=== PATIENT | male | born 1970 | race Caucasian/White ===

== ENCOUNTER 2020-08-19 14:42 | Inpatient (IN) | payer OTHER, SELFPAY ==
[2020-08-19] VITALS (20 sets, daily range): BP systolic 115–137; BP diastolic 71–94; PULSE 96–114; RESP 13–35; TEMP 35.7–37.1; O2SAT 91–99
--- NOTE | ~2020-08-19 | CT_ITS ---
EXAMINATION: CTA chest PE protocol DATE: 08/19/2020 16:12 INDICATION: Chest pain and shortness of breath. Covid-positive. Hypertension. TECHNIQUE: Computed tomography angiography (CTA) of the chest was performed with 100 mL Omnipaque-350 intravenous contrast timed to evaluate the pulmonary arteries. Coronal maximum intensity projection 3D-reconstructions were created by the technologist. Automated exposure control and iterative reconst ruction technique were employed. Exam dose: 507.28 mGy-cm total exam DLP. COMPARISON: 10/22/2018 2 view chest FINDINGS: There is diagnostic contrast enhancement of the pulmonary arteries and no evidence of pulmo nary embolism. No thoracic aortic aneurysm or dissection. Normal heart size. Coronary artery calcification. No pericardial or pleural effusion. Mild bilateral hilar and mediastinal lymph node prominence, likely reactive. There are scattered patchy infiltrates throughout all lobes bilaterally. Small sliding hiatal hernia. Solitary small sclerotic lesion of the left lateral seventh rib. IMPRESSION: Patchy bilateral pneumonia scattered throughout all lobes, both lungs, with mild hilar a nd mediastinal likely reactive lymphadenopathy No evidence of pulmonary embolism Small sliding hiatal hernia Solitary sclerotic lesion of the left seventh rib laterally is of uncertain if any significance. Reviewed, dictated and finalized at [facility]. Reviewed, dictated and finalized at [facility]. IMPRESSION: Patchy bilateral pneumonia scattered throughout all lobes, both markel ngs, with mild hilar and mediastinal likely reactive lymphadenopathy No evidence of pulmonary embolism Small sliding hiatal hernia Solitary sclerotic lesion of the left seventh rib laterally is of uncertain if any significance.
--- NOTE | 2020-08-19 14:51 | ECG_ITS ---
Measurements Intervals [place] Rate: 102 P: 9 CT: 163 QRS: 0 QRSD: 69 T: 20 QT: 303 QTc: 395 Interpretive Statements SINUS TACHYCARDIA BORDERLINE ECG Electronically Signed On 08-19-2020 15:23:23 CDT by Sander Marquez D.O.
--- NOTE | 2020-08-19 15:00 | PC.NURSE ---
placed on o2 at 2 lpm nc for room air sat 92-33%. pt was 89% room air at home per ems crew
[2020-08-19] MEDS: DEXAMETHASONE SOD PHOS INJ 4 MG/ML VIAL 6 MG IV PUSH (15:27)
[2020-08-19 15:37] LABS: Basophils Percent Auto 0.2 % (0.2-1.2); Hematocrit 43.2 % (42.0-52.0); Hemoglobin 14.5 g/dL (14.0-18.0); Immature Granulocyte Absolute 0.06 K/mm3 (0.00-0.031); Immature Granulocyte Percent A 1.1 % (0-0.5); Lymphocytes Absolute Auto 1.02 K/mm3 (0.9-3.2); Lymphocytes Percent Auto 18.7 % (18.3-44.2); Mean Corpuscular HGB Conc 33.6 g/dl (32-36); Mean Corpuscular Hemoglobin 30.5 pg (26-34); Mean Corpuscular Volume 90.9 fl (80-100); Mean Platelet Volume 11.2 fl (7.4-10.4); Monocytes Absolute Auto 0.2 K/mm3 (0.1-0.6); Neutrophils Absolute Auto 4.1 K/mm3 (1.3-6.7); Platelet Count Result 175 k/mm3 (150-375); Red Blood Count 4.75 M/mm3 (4.6-6.20); Red Cell Distribution Width 13.1 % (11.5-14.5); White Blood Count 5.5 K/mm3 (4.5-10.0)
[2020-08-19 15:46] LABS: Prothrombin Time 13.4 Seconds (11.1-14.7)
[2020-08-19 15:47] LABS: Lactic Acid Reflex 1.1 mmol/L (0.7-2.1); Partial Thromboplastin Time 25.8 SECONDS (22.3-36.8)
--- NOTE | 2020-08-19 15:48 | ED.GENADULT ---
HPI - General Adult General Chief complaint: Chest Pain Stated complaint: COVID +, SOB, Chest tightness Time Seen by Provider: 08/19/20 14:45 History of Present Illness HPI narrative: Patient is a 49-year-old male who presents the ER with chest pain and shortness of breath. Patient reports that 2 weeks ago his was diagnosed with COVID-19. At that time he was tested and negative. However he began to develop symptoms on 08/13 and was retested. He was then found to be positive. Today he had virtual follow-up with his physician and reported increased pain and shortness of breath. Began coughing and having pain with inspiration in the last 24 hours. EMS arrived and patient was found to be hypoxic at 88% on room air. No alleviating factors. Related Data Home Medications Medication Instructions Recorded Confirmed atorvastatin 08/19/20 lisinopril 08/19/20 metformin mg PO 08/19/20 Allergies Allergy/AdvReac Type Severity Reaction Status Date / Time Penicillins Allergy Unknown Verified 03/13/17 16:59 Review of Systems Review of Systems: All systems reviewed & are unremarkable except as noted in HPI and below Constitutional: Constitutional: Reports chills, Reports fatigue and Reports fever(s) ENT: Denies nasal congestion and Denies sore throat Cardiovascular: Cardiovascular: Reports chest pain, Denies rapid heart rate and Denies radiating jaw, neck or arm pain Respiratory: Respiratory: Reports cough, Reports dyspnea and Denies wheezing Gastrointestinal: Gastrointestinal: Denies abdominal pain, Denies nausea and Denies vomiting Neurologic: Denies focal weakness and Denies numbness PMFSH Past Medical History Medical History (Updated 08/19/20 @ 16:44 by Baron Henson MD) Diabetes History of hypertension Hypercholesterolemia Pneumonia Surgical History Surgical History (Updated 08/19/20 @ 15:52 by Baron Henson MD) History of left heart catheterization Social History Social History (Updated 08/19/20 @ 15:52 by Baron Henson MD) Smoking status: Never smoker Exam Narrative: Exam Narrative: GENERAL: Well-appearing, well-nourished, and in no acute distress. HEAD: Normocephalic, atraumatic. EYES: PERRL and EOMI. CHEST: Crackles in bilateral lung lovelace. No respiratory distress. Frequent coughing HEART: Tachycardic and regular. Normal peripheral pulses. ABDOMEN: Soft, nontender, nondistended. EXTREMITIES: Normal range of motion. No edema. SKIN: Warm, dry, no rash. NEURO: Alert and oriented x3. PSYCH: Normal mood and affect. Course Course Emergency Course: Patient informed results. Admit to hospitalist. Vital Signs Vital signs: Vital Signs Temperature 98.7 F 08/19/20 14:50 Pulse Rate 103 H 08/19/20 14:50 Respiratory Rate 25 H 08/19/20 14:50 Blood Pressure 133/90 08/19/20 14:50 Pulse Oximetry 96 08/19/20 14:50 Temperature 98.7 F 08/19/20 14:50 Pulse Rate 108 H 08/19/20 16:30 Respiratory Rate 25 H 08/19/20 16:30 Blood Pressure 137/94 H 08/19/20 15:46 Pulse Oximetry 96 08/19/20 16:30 Medical Decision Making Vital Signs Vital Signs: Vital Signs Temperature 98.7 F 08/19/20 14:50 Pulse Rate 103 H 08/19/20 14:50 Respiratory Rate 25 H 08/19/20 14:50 Blood Pressure 133/90 08/19/20 14:50 Pulse Oximetry 96 08/19/20 14:50 Temperature 98.7 F 08/19/20 14:50 Pulse Rate 108 H 08/19/20 16:30 Respiratory Rate 25 H 08/19/20 16:30 Blood Pressure 137/94 H 08/19/20 15:46 Pulse Oximetry 96 08/19/20 16:30 Lab Data Result diagrams: 08/19/20 15:30 08/19/20 15:30 Labs: Lab Results 08/19/20 08/19/20 08/19/20 Range/Units 15:30 15:30 15:30 WBC 5.5 (4.5-10.0) K/mm3 RBC 4.75 (4.6-6.20) M/mm3 Hgb 14.5 (14.0-18.0) g/dL Hct 43.2 (42.0-52.0) % MCV 90.9 (80-100) fl MCH 30.5 (26-34) pg MCHC 33.6 (32-36) g/dl RDW 13.1 (11.5-14.5) % Plt Count 175
[2020-08-19 15:50] LABS: Alanine Aminotransferase 42 U/L (4-50); Albumin Level 4.4 g/dL (3.5-5.1); Alkaline Phosphatase 45 U/L (38-126); Anion Gap 9 mmol/L (8-16); Aspartate Amino Transferase 47 U/L (17-59); Bilirubin,Total 0.5 mg/dL (0.2-1.3); Blood Urea Nitrogen 15 mg/dL (9-20); Calcium 9.5 mg/dL (8.4-10.2); Carbon Dioxide 28 mmol/L (22-30); Chloride 103 mmol/L (98-107); Estimated CRCL calculation 100 ml/min; Estimated Glomerular Filt Rate > 60; Glucose 155 mg/dL (75-110); Potassium 3.9 mmol/L (3.4-5.0); Sodium 140 mmol/L (137-145)
[2020-08-19 17:10] LABS: CRP 5.9 mg/dL (<1.0)
[2020-08-19] MEDS: MORPHINE SULFATE (*CRX) 4 MG/ML INJ IV PUSH (17:24)
[2020-08-19] MEDS: ONDANSETRON INJ 4 MG/2 ML VIAL IV PUSH (17:24)
--- NOTE | 2020-08-19 19:00 | PC.NURSE ---
This patient, Tim Mishra, was admitted to 3 [facility] Surg Room 319-01. Patient/family oriented to hospital policies and general routines including ID bracelet, bed and alarms, visiting hours, pain management, procedures, bathroom and other care routines, personal items, smoking policy, room service/diet, and visiting hours. Report received from Paige MAZARIEGOS Information on how to activate the Rapid Response Team has been discussed. Patient/Family are encouraged to report perceived risks to care and to ask questions if they do not understand what they are told or what they should do.
[2020-08-19 22:39] LABS: Glucose Point of Care 346 (65-105)
--- NOTE | 2020-08-19 22:50 | PM.IMHP ---
H&P: HPI History of Present Illness Date/Time: 08/19/20 22:50 Chief Complaint: shortness of breaht, cehst pain Narrative: Patient is a 49-year-old male who presents the ER with chest pain and shortness of breath. Patient reports that 2 weeks ago his was diagnosed with COVID-19. At that time he was tested and negative. However he began to develop symptoms on 08/13 and was retested on 08/13 which came back positive. Today he had virtual follow-up with his physician and reported increased pain and shortness of breath. Began coughing and having pain with inspiration in the last 24 hours. EMS arrived and patient was found to be hypoxic at 88% on room air. No alleviating factors. Review of Systems Review of Systems: Narrative: - CONSTITUTIONAL: Denies weight loss, reports fever and chills. - HEENT: Denies changes in vision and hearing - RESPIRATORY: reprots SOB and cough. - CV: Denies palpitations and reports CP. - GI: Denies abdominal pain, nausea, vomiting and diarrhea. - : Denies dysuria and urinary frequency. - MSK: Denies myalgia and joint pain. - SKIN: Denies rash and pruritus. - NEUROLOGICAL: Denies headache and syncope. - PSYCHIATRIC: Denies recent changes in mood. Denies anxiety and depression. All systems reviewed & are unremarkable except as noted in HPI and below Neurologic: Reports weakness Endocrine: Endocrine: Reports fatigue PMFSH Past Medical History Medical History (Updated 08/19/20 @ 22:53 by Scotty Coburn MD) Diabetes History of hypertension Hypercholesterolemia Pneumonia Surgical History Surgical History (Updated 08/19/20 @ 15:52 by Baron Henson MD) History of left heart catheterization Social History Social History (Updated 08/19/20 @ 15:52 by Baron Henson MD) Smoking status: Never smoker Alcohol intake: current Substance use: current Gender identity (if verbalized by the patient): Male Spiritual care concerns: No Meds Home Medications and Allergies Home Medications Medication Instructions Recorded Confirmed Type Nexium 20 mg PO DAILY 08/19/20 08/19/20 History atorvastatin 80 mg PO DAILY 08/19/20 08/19/20 History clopidogrel 75 mg PO DAILY 08/19/20 08/19/20 History fenofibrate 134 mg PO DAILY 08/19/20 08/19/20 History lisinopril 20 mg PO DAILY 08/19/20 08/19/20 History metformin 500 mg PO DAILY 08/19/20 08/19/20 History metoprolol succinate 25 mg PO DAILY 08/19/20 08/19/20 History Allergies Allergy/AdvReac Type Severity Reaction Status Date / Time Penicillins Allergy Unknown Verified 03/13/17 16:59 Vital Signs Vital Signs - 24 hr 08/19/20 14:50 08/19/20 14:52 08/19/20 14:57 Temperature 98.7 F Pulse Rate 103 H 108 H Respiratory Rate 25 H 20 Blood Pressure 133/90 133/90 Pulse Oximetry 93 93 96 08/19/20 15:00 08/19/20 15:01 08/19/20 15:04 Temperature Pulse Rate 104 H 106 H 96 Respiratory Rate 32 H 25 H Blood Pressure 132/87 Pulse Oximetry 96 97 08/19/20 15:15 08/19/20 15:16 08/19/20 15:30 Temperature Pulse Rate 98 104 H 113 H Respiratory Rate 28 H 26 H 26 H Blood Pressure 134/87 Pulse Oximetry 97 97 97 08/19/20 15:45 08/19/20 15:46 08/19/20 16:16 Temperature Pulse Rate 103 H 104 H 103 H Respiratory Rate 29 H 25 H 13 Blood Pressure 137/94 H Pulse Oximetry 97 93 98 08/19/20 16:30 08/19/20 16:45 08/19/20 17:00 Temperature Pulse Rate 108 H 114 H 103 H Respiratory Rate 25 H 33 H 35 H Blood Pressure Pulse Oximetry 96 99 99 08/19/20 17:15 08/19/20 17:17 08/19/20 18:30 Temperature Pulse Rate 108 H 108 H 99 Respiratory Rate 21 H 26 H 22 H Blood Pressure 115/80 115/80 121/77 Pulse Oximetry 98 98 96 08/19/20 19:09 08/19/20 20:00 Temperature 98.6 F 96.3 F L Pulse Rate 100 103 H Respiratory Rate 20 18 Blood Pressure 129/71 120/75 Pulse Oximetry 96 91 Exam Narrative: Exam Narrative: GENERAL: The patient is well developed, not in acute distress TUCKER
[2020-08-19 23:35] LABS: Prothrombin Time 13.6 Seconds (11.1-14.7)
[2020-08-19 23:36] LABS: Alanine Aminotransferase 34 U/L (4-50); Estimated CRCL calculation 90 ml/min; Estimated Glomerular Filt Rate > 60
[2020-08-19] MEDS: HYDROcodone/acetaminophen (*CRX) 5-325 MG TABLET 1 TAB PO (23:53)
[2020-08-20] VITALS (10 sets, daily range): BP systolic 106–132; BP diastolic 66–85; PULSE 78–99; RESP 16–24; TEMP 36–36.9; O2SAT 90–96
[2020-08-20] MEDS: REMDESIVIR 200 MG/NS 250 ML 200 MG/250 ML BAG 250 MG IVPB (00:05)
[2020-08-20 00:31] LABS: Procalcitonin 0.1 ng/mL
[2020-08-20 06:30] LABS: Alanine Aminotransferase 30 U/L (4-50); Estimated CRCL calculation 100 ml/min; Estimated Glomerular Filt Rate > 60
[2020-08-20 06:32] LABS: Prothrombin Time 13.8 Seconds (11.1-14.7)
[2020-08-20 08:30] LABS: Glucose Point of Care 194 (65-105)
[2020-08-20] MEDS: CLOPIDOGREL BISULFATE 75 MG TABLET PO (10:00)
[2020-08-20] MEDS: ATORVASTATIN 40 MG TABLET 80 MG PO (10:00)
[2020-08-20] MEDS: lisinopriL 20 MG TABLET PO (10:00)
[2020-08-20] MEDS: ENOXAPARIN 40 MG/0.4 ML SYRINGE SUB-Q (10:00)
[2020-08-20] MEDS: PANTOPRAZOLE SOD SESQUIHYDRATE 20 MG TAB PO (10:00)
[2020-08-20] MEDS: metFORMIN HCL XR 500 MG TAB.SR.24H PO (10:01)
[2020-08-20] MEDS: DEXAMETHASONE SOD PHOS INJ 4 MG/ML VIAL 6 MG IV PUSH (10:01)
[2020-08-20] MEDS: METOPROLOL SUCCINATE EXT REL 25 MG TABCR PO (10:02)
[2020-08-20] MEDS: MORPHINE SULFATE (*CRX) 4 MG/ML INJ IV PUSH ×2 (10:24→18:02)
[2020-08-20 12:18] LABS: Glucose Point of Care 214 (65-105)
[2020-08-20] MEDS: FENOFIBRATE NANOCRYSTALLIZED 145 MG TABLET PO (12:23)
[2020-08-20] MEDS: INSULIN ASPART (*BKC) 100 UNITS/ML SUB-Q ×2 (12:24→17:59)
--- NOTE | 2020-08-20 14:48 | PM.IMPN ---
Progress Note: A&P Assessment and Plan (1) Pneumonia due to 2019-nCoV: Code(s): U07.1 - COVID-19; J12.82 - Pneumonia due to coronavirus disease 2019 Status: Acute Assessment and Plan: COVID on 08/13/2020 and has been taking [id number] medications for his symptoms. Patient came to the emergency room after having increased dry cough, pleuritic chest pain with inspiration over the last 24 hours. Initial vitals showed he was afebrile, slightly tachycardic at 103 beats per minute, increased respiratory rate at 25, blood pressure 133/90, oxygen saturation was 93% on 2L. Initial labs showed normal white blood cell count, slightly elevated neutrophil count of 76%, normal coag panel, normal CMP, CRP elevated at 5.9. Normal lactic acid. Normal procalcitonin. CTA chest showed Patchy bilateral pneumonia scattered throughout all lobes, both lungs, with mild hilar and mediastinal likely reactive lymphadenopathy. No evidence of pulmonary embolism. Patient was admitted in the hospital due to acute respiratory failure, increased pain, monitoring respiratory status and conservative for management for COVID. Patient is 90% on room air at this time. On IV dexamethasone and IV Remdesivir IV antibiotics were discontinued at this time since it does not appear to be bacterial in nature Conservative management Continue monitoring. Monitor respiratory status. (2) Acute respiratory failure with hypoxia: Code(s): J96.01 - Acute respiratory failure with hypoxia Status: Acute Assessment and Plan: See above. (3) Melena: Code(s): K92.1 - Melena Status: Acute Assessment and Plan: Patient reports having melena this afternoon. He has never had this before. He is chronically on Plavix and we have had him on Lovenox for DVT prophylaxis since admission due to a COVID Will hold Plavix and Lovenox at this time Recheck H&H Will check stool Hemoccult iron panel/Vitamin B12/Folate Increase PPI to pantoprazole 40 mg b.i.d. Continue monitoring. (4) Diabetes: Code(s): E11.9 - Type 2 diabetes mellitus without complications Status: Acute Assessment and Plan: Continue metformin at this time since he is on steroids. Elevated glucose. Sliding scale insulin. Hypoglycemic protocol in place. Will check hemoglobin A1c in the morning. (5) History of hypertension: Code(s): Z86.79 - Personal history of other diseases of the circulatory system Status: Acute Assessment and Plan: Blood pressure stable this morning 127/85. Continue home medications. Continue monitoring BP. (6) Hypercholesterolemia: Code(s): E78.00 - Pure hypercholesterolemia, unspecified Status: Acute Assessment and Plan: Continue cholesterol medications. (7) CAD (coronary artery disease): Code(s): I25.10 - Atherosclerotic heart disease of [place] coronary artery without angina pectoris Status: Acute Assessment and Plan: Will hold Plavix now due to melena. Monitor for any chest pain or symptoms. Denies any chest pain at this time. Time Spent With Patient Time with patient: 25 - 35 minutes Subjective Date/time seen: 08/20/20 14:48 Interval history: Date of service 08/20/2020: The patient reports feeling slightly better today. He still has pain with deep inspiration of his chest. He still has intermittent dry cough. This morning he had a dry cough it which lasted about 1 hour. He had morphine afterwards and has been feeling well since then. He also reports having a bowel movement this afternoon and was black in color which he has nev
[2020-08-20 16:37] LABS: Hemoglobin 13.5 g/dL (14.0-18.0)
[2020-08-20 17:16] LABS: Iron 58 ug/dL (49-181)
[2020-08-20 17:27] LABS: Percent Iron Saturation 20 % (20-50)
[2020-08-20 17:28] LABS: IFOB Positive Control Positive; Immunochemical Fecal Occult Bl Negative (N)
[2020-08-20 17:41] LABS: Glucose Point of Care 248 (65-105)
[2020-08-20 17:58] LABS: Folic Acid 17.8 ng/mL (2.76->20)
[2020-08-20] MEDS: REMDESIVIR 100 MG/NS 250 ML 100 MG/250 ML BAG 250 MG IVPB (21:24)
[2020-08-20] MEDS: MELATONIN 3 MG TABLET PO (21:25)
[2020-08-20] MEDS: PANTOPRAZOLE 40 MG TABLET PO (21:26)
[2020-08-20 21:38] LABS: Glucose Point of Care 305 (65-105)
[2020-08-20] MEDS: INSULIN ASPART (*BKC) 100 UNITS/ML 6 UNITS SUB-Q (21:45)
[2020-08-21] VITALS (8 sets, daily range): BP systolic 107–119; BP diastolic 72–80; PULSE 72–83; RESP 16–20; TEMP 36.3–36.8; O2SAT 91–96
[2020-08-21] MEDS: MORPHINE SULFATE (*CRX) 4 MG/ML INJ IV PUSH (06:06)
[2020-08-21 06:18] LABS: Hematocrit 37.1 % (42.0-52.0); Hemoglobin 12.5 g/dL (14.0-18.0); Mean Corpuscular HGB Conc 33.7 g/dl (32-36); Mean Corpuscular Hemoglobin 30.6 pg (26-34); Mean Corpuscular Volume 90.9 fl (80-100); Mean Platelet Volume 11.7 fl (7.4-10.4); Platelet Count Result 202 k/mm3 (150-375); Red Blood Count 4.08 M/mm3 (4.6-6.20); Red Cell Distribution Width 13.1 % (11.5-14.5); White Blood Count 5.1 K/mm3 (4.5-10.0)
[2020-08-21 06:33] LABS: Hemoglobin A1C 7.6 % (<5.7)
[2020-08-21 06:42] LABS: Alanine Aminotransferase 28 U/L (4-50); Anion Gap 9 mmol/L (8-16); Blood Urea Nitrogen 23 mg/dL (9-20); CRP 3.5 mg/dL (<1.0); Calcium 9.6 mg/dL (8.4-10.2); Carbon Dioxide 24 mmol/L (22-30); Chloride 106 mmol/L (98-107); Estimated CRCL calculation 81 ml/min; Estimated Glomerular Filt Rate > 60; Glucose 164 mg/dL (75-110); Potassium 4.1 mmol/L (3.4-5.0); Sodium 139 mmol/L (137-145)
[2020-08-21 07:51] LABS: Glucose Point of Care 161 (65-105)
[2020-08-21 07:54] LABS: Prothrombin Time 14.2 Seconds (11.1-14.7)
[2020-08-21] MEDS: ATORVASTATIN 40 MG TABLET 80 MG PO (08:02)
[2020-08-21] MEDS: PANTOPRAZOLE 40 MG TABLET PO ×2 (08:02→21:17)
[2020-08-21] MEDS: DEXAMETHASONE SOD PHOS INJ 4 MG/ML VIAL 6 MG IV PUSH (08:02)
[2020-08-21] MEDS: metFORMIN HCL XR 500 MG TAB.SR.24H PO (08:02)
[2020-08-21] MEDS: FENOFIBRATE NANOCRYSTALLIZED 145 MG TABLET PO (08:04)
[2020-08-21] MEDS: lisinopriL 20 MG TABLET PO (08:05)
[2020-08-21] MEDS: METOPROLOL SUCCINATE EXT REL 25 MG TABCR PO (08:05)
--- NOTE | 2020-08-21 10:45 | PM.IMPN ---
Progress Note: A&P Assessment and Plan (1) Pneumonia due to 2019-nCoV: Code(s): U07.1 - COVID-19; J12.82 - Pneumonia due to coronavirus disease 2019 Status: Acute Assessment and Plan: COVID on 08/13/2020 and has been taking cspe-smt-iuifesc medications for his symptoms. Patient came to the emergency room after having increased dry cough, pleuritic chest pain with inspiration over the last 24 hours. Initial vitals showed he was afebrile, slightly tachycardic at 103 beats per minute, increased respiratory rate at 25, blood pressure 133/90, oxygen saturation was 93% on 2L. Initial labs showed normal white blood cell count, slightly elevated neutrophil count of 76%, normal coag panel, normal CMP, CRP elevated at 5.9. Normal lactic acid. Normal procalcitonin. CTA chest showed Patchy bilateral pneumonia scattered throughout all lobes, both lungs, with mild hilar and mediastinal likely reactive lymphadenopathy. No evidence of pulmonary embolism. Patient was admitted in the hospital due to acute respiratory failure, increased pain, monitoring respiratory status and conservative for management for COVID. Patient is 91% on room air at this time. No longer hypoxic. CRP trending down. Continue on IV dexamethasone and IV Remdesivir IV antibiotics were discontinued at this time since it does not appear to be bacterial in nature Patient still having pain after coughing fits requiring morphine Conservative management Continue monitoring. Monitor respiratory status. (2) Acute respiratory failure with hypoxia: Code(s): J96.01 - Acute respiratory failure with hypoxia Status: Acute Assessment and Plan: See above. (3) Melena: Code(s): K92.1 - Melena Status: Acute Assessment and Plan: Patient reports having melena this afternoon. He has never had this before. He is chronically on Plavix and we have had him on Lovenox for DVT prophylaxis since admission due to a COVID Hgb on arrival was 14.5, yesterday dropped to 13.5 and today it is 12.5. He still reports dark stools , but iron labs, Vit B12/Folate were normal. IFob showed no acute blood. Continue Pantoprazole 40 mg b.i.d. 08/21/20- Will restart Plavix. Continue SCDs for DVT prophylaxis as well as increasing activity. Patient understands the risk of needing to remain active to prevent blood clots from COVID and immobility. Nurse evaluated his stool and it was green in color. Not melena. Continue monitoring. (4) Diabetes: Code(s): E11.9 - Type 2 diabetes mellitus without complications Status: Acute Assessment and Plan: Continue metformin at this time since he is on steroids. Elevated glucose. Hemoglobin A1c was 7.6% fairly well controlled. Sliding scale insulin. Hypoglycemic protocol in place. (5) History of hypertension: Code(s): Z86.79 - Personal history of other diseases of the circulatory system Status: Acute Assessment and Plan: Blood pressure stable this morning 107/72. Continue home medications. Continue monitoring BP. (6) Hypercholesterolemia: Code(s): E78.00 - Pure hypercholesterolemia, unspecified Status: Acute Assessment and Plan: Continue cholesterol medications. (7) CAD (coronary artery disease): Code(s): I25.10 - Atherosclerotic heart disease of [place] coronary artery without angina pectoris Status: Acute Assessment and Plan: Will restart Plavix since anemia work up/stool hemoccult was normal. Monitor for any chest pain or symptoms. Time Spent With Patient Time with patient: 25 - 35 minutes Subjecti
[2020-08-21] MEDS: guaiFENesin/DEXTROMETHORPHAN 10 ML UDC 5 ML PO ×2 (11:53→17:39)
[2020-08-21] MEDS: SALINE 0.65% NAS SOLN 44 ML BTL 1 SPRAY NASAL (11:54)
[2020-08-21] MEDS: BENZOCAINE/MENTHOL (*BKC) 18 EA LOZENGE 1 LOZENGE PO (11:54)
[2020-08-21] MEDS: CLOPIDOGREL BISULFATE 75 MG TABLET PO (11:55)
[2020-08-21 12:15] LABS: Glucose Point of Care 216 (65-105)
[2020-08-21] MEDS: INSULIN ASPART (*BKC) 100 UNITS/ML SUB-Q ×3 (12:39→23:01)
[2020-08-21 17:35] LABS: Glucose Point of Care 243 (65-105)
[2020-08-21] MEDS: MELATONIN 3 MG TABLET PO (21:17)
[2020-08-21] MEDS: REMDESIVIR 100 MG/NS 250 ML 100 MG/250 ML BAG 250 MG IVPB (21:17)
[2020-08-21 21:48] LABS: Glucose Point of Care 281 (65-105)
[2020-08-22] VITALS: BP 127/90; PULSE 64; RESP 20; TEMP 36.3; O2SAT 95
[2020-08-22 04:00] VITALS: BP 119/78; PULSE 66; RESP 20; TEMP 36.2; O2SAT 94
[2020-08-22 06:19] LABS: Hematocrit 34.5 % (42.0-52.0); Hemoglobin 11.5 g/dL (14.0-18.0)
[2020-08-22 06:34] LABS: Alanine Aminotransferase 23 U/L (4-50); Anion Gap 8 mmol/L (8-16); Blood Urea Nitrogen 23 mg/dL (9-20); Calcium 9.1 mg/dL (8.4-10.2); Carbon Dioxide 24 mmol/L (22-30); Chloride 107 mmol/L (98-107); Estimated CRCL calculation 90 ml/min; Estimated Glomerular Filt Rate > 60; Glucose 157 mg/dL (75-110); Potassium 3.9 mmol/L (3.4-5.0); Sodium 139 mmol/L (137-145)
[2020-08-22 08:00] VITALS: BP 120/74; PULSE 68; RESP 16; TEMP 36.4; O2SAT 94
[2020-08-22] MEDS: ONDANSETRON INJ 4 MG/2 ML VIAL IV PUSH (08:17)
[2020-08-22] MEDS: lisinopriL 20 MG TABLET PO (08:18)
[2020-08-22] MEDS: PANTOPRAZOLE 40 MG TABLET PO (08:18)
[2020-08-22] MEDS: metFORMIN HCL XR 500 MG TAB.SR.24H PO (08:18)
[2020-08-22] MEDS: FENOFIBRATE NANOCRYSTALLIZED 145 MG TABLET PO (08:18)
[2020-08-22] MEDS: ATORVASTATIN 40 MG TABLET 80 MG PO (08:18)
[2020-08-22 08:19] VITALS: PULSE 68
[2020-08-22] MEDS: DEXAMETHASONE SOD PHOS INJ 4 MG/ML VIAL 6 MG IV PUSH (08:19)
[2020-08-22] MEDS: METOPROLOL SUCCINATE EXT REL 25 MG TABCR PO (08:19)
[2020-08-22 08:28] LABS: Glucose Point of Care 144 (65-105)
[2020-08-22 09:07] LABS: Prothrombin Time 13.6 Seconds (11.1-14.7)
--- NOTE | 2020-08-22 11:57 | PM.DS ---
DS: Admitting Diagnosis Admitting Diagnosis Admitting Diagnosis: SOB Chest pain DS: Discharge Diagnosis Discharge Diagnosis (1) Pneumonia due to 2019-nCoV: Code(s): U07.1 - COVID-19; J12.82 - Pneumonia due to coronavirus disease 2019 Status: Acute Assessment and Plan: Patient is a 49-year-old man with a history of CAD status post PCI, on Plavix, who presented to the emergency room with chest pain and shortness of breath. The patient's had COVID about 2 weeks ago. Initially he tested negative, but he developed symptoms on 08/13/2020 and got retested was found to be positive for COVID-19. He had been taking givm-pah-wxulsxf medications for his symptoms. Patient came to the emergency room after having increased dry cough, pleuritic chest pain with inspiration over the last 24 hours. Initial vitals showed he was afebrile, slightly tachycardic at 103 beats per minute, increased respiratory rate at 25, blood pressure 133/90, and hypoxic with oxygen saturation 93% on 2L. Initial labs showed normal white blood cell count, slightly elevated neutrophil count of 76%, normal coag panel, normal CMP, CRP elevated at 5.9. Normal lactic acid. Normal procalcitonin. CTA chest showed Patchy bilateral pneumonia scattered throughout all lobes, both lungs, with mild hilar and mediastinal likely reactive lymphadenopathy. No evidence of pulmonary embolism. Patient was admitted in the hospital due to acute respiratory failure, increased pain, monitoring respiratory status and conservative for management for COVID. The patient was started on IV dexamethasone and IV Remdesivir. He was treated conservatively. He was able to be weaned off of oxygen without any more hypoxic episodes. Patient was discharged home in a stable condition to continue some oral Decadron. Told him to use albuterol inhaler as needed for wheezing and shortness of breath. Mnnq-ohi-uwgmufm Tylenol for pain and muscle aches. As needed antitussives. Patient understands and agrees with the plan all questions answered. The patient stated he had dark stools . He is chronically on Plavix and we have had him on Lovenox for DVT prophylaxis since admission due to a COVID. Hgb on arrival was 14.5, yesterday dropped to 13.5 and today it is 11.5. Iiron labs, Vit B12/Folate were normal. IFob showed no acute blood. Recommended to Continue Pantoprazole 40 mg b.i.d. I restarted the patient's home Plavix. Continue with SCDs the last 2 days. Patient denies any more dark stools today. (2) Acute respiratory failure with hypoxia: Code(s): J96.01 - Acute respiratory failure with hypoxia Status: Acute Assessment and Plan: See above. (3) Melena: Code(s): K92.1 - Melena Status: Acute Assessment and Plan: (4) Diabetes: Code(s): E11.9 - Type 2 diabetes mellitus without complications Status: Acute Assessment and Plan: Continue metformin at this time since he is on steroids. Elevated glucose. Hemoglobin A1c was 7.6% fairly well controlled. (5) History of hypertension: Code(s): Z86.79 - Personal history of other diseases of the circulatory system Status: Acute Assessment and Plan: Blood pressure stable this morning 119/78. Continue home medications. (6) Hypercholesterolemia: Code(s): E78.00 - Pure hypercholesterolemia, unspecified Status: Acute Assessment and Plan: Continue cholesterol medications. (7) CAD (coronary artery disease): Code(s): I25.10 - Atherosclerotic heart disease of [place] coronary artery without angina pectoris Status: Acute Assessment and Plan: Will restart Plavix
[2020-08-22 12:00] VITALS: BP 115/77; PULSE 77; RESP 16; TEMP 36.7; O2SAT 95
[2020-08-22 12:21] LABS: Glucose Point of Care 183 (65-105)
== END 2020-08-22 14:12 | disposition home or self-care (01) | DRG 177 ==
LOC: ANHED 16:44 → ANH3MEDSUR 20:01
PROVIDERS: Internal Medicine; Admitting Provider Hospitalist; Emergency Provider Emergency Medicine; PCP Physician Assistant; Visit Provider Physician Assistant
DX: U07.1 COVID-19 (principal); J12.82 Pneumonia due to coronavirus disease 2019; J96.01 Acute respiratory failure with hypoxia; K92.1 Melena; E78.00 Pure hypercholesterolemia, unspecified; E11.9 Type 2 diabetes mellitus without complications; I25.10 Atherosclerotic heart disease of native coronary artery without angina pectoris; I10 Essential (primary) hypertension; Z79.02 Long term (current) use of antithrombotics/antiplatelets; Z79.84 Long term (current) use of oral hypoglycemic drugs; Z79.899 Other long term (current) drug therapy; Z88.0 Allergy status to penicillin
CPT/HCPCS: 36415; 71275; 80048; 80053; 82274; 82565; 82607; 82728; 82746; 82948; 83036; 83540; 83550; 83605; 84145; 84460; 85014; 85018; 85025; 85027; 85610; 85730; 86140; 93005; 96374; 99285; A9270; J0456; J0696; J1100; J1650; J1815; J2270; J2405; Q9967

== ENCOUNTER 2024-05-23 14:57 | Emergency (ER) | payer OTHER, SELFPAY ==
[2024-05-23 15:17] VITALS: BP 140/94; PULSE 85; RESP 16; TEMP 36.6; O2SAT 98
--- OUTSIDE RECORDS SUMMARY | 2024-05-23 15:45 | XMS_ITS | Clinical Summary ---
Author Organization [facility] [address] [facility] lt Address [address] [place] [address] Care Team Providers Care Kitchen Stewardess Name Role Phone Joshua De MD Unavailable [phone] Constance Arboleda Primary Care Provider [phone] Allergies Active Allergy Reactions Criticality Noted Date Comments Penicillins Rash,Hives Reaction: RASH, Reaction: Hives, Medications albuterol HFA (ProAir HFA) 90 mcg/actuation inhaler Inhale 2 puffs every 4 (four) hours as needed for wheezing or shortness of breath 8.5 g 04/28/19 22 Active isosorbide mononitrate ER (IMDUR) 30 mg 24 hr tablet Take 1 tablet (30 mg total) by mouth daily 30 tablet 11 03/17/20 23 Active lisinopriL (PRINIVIL,ZESTR IL) 20 mg tablet Take 0.5 tablets (10 mg total) by mouth daily 90 tablet 2 07/26/19 24 Active icosapent ethyL (Vascepa) 1 gram capsule Take 1 capsule (1 g total) by mouth 2 (two) times a day 360 capsule 1 07/26/[address] (NexIUM) 20 mg capsule Take 1 capsule (20 mg total) by mouth daily before breakfast 90 capsule 1 07/26/19 24 Active Rybelsus 14 mg tablet TAKE 1 TABLET(14 MG) BY MOUTH INDEPENDENT TRADER BEFORE BREAKFAST 90 tablet 1 10/12/19 24 Active atorvastatin (LIPITOR) 80 mg tablet TAKE 1 TABLET(80 MG) BY MOUTH DAILY 90 tablet 3 12/21/19 24 Active clopidogreL (PLAVIX) 75 mg tablet TAKE 1 TABLET(75 MG) BY MOUTH DAILY 90 tablet 3 02/18/20 24 Active metoprolol XL (TOPROL-XL) 50 mg extended release tablet Take 1 tablet (50 mg total) by mouth daily 90 tablet 1 03/03/20 24 Active escitalopram (LEXAPRO) 10 mg tablet TAKE 1 TABLET(10 MG) BY MOUTH DAILY 90 tablet 1 04/28/19 25 Active escitalopram (LEXAPRO) 10 mg tablet Take 1 tablet (10 mg total) by mouth daily 90 tablet 1 07/26/19 24 025 Discontinued Active Problems Patient Care Coordination No te Formatting of this note migh t be different from the original. CAD for BIC Problem Noted Date Diagnosed Date Colon adenomas 07/26/2023 Overview (07/26/2023): Dr. Loyd-Colonoscopy - 08/2019 (Adenomas) -->2022 Assessment & Plan (07/26/2023 1:27 PM CDT): Dr. Loyd-Colonoscopy - 08/2019 (Adenomas) -->2022 Patient has not yet set an appointment with Dr. Loyd. Will send a referral over so we can try to get him scheduled to remain on time for his screening as he is past due by about a year Skin mass 07/26/2023 Assessment & Plan (07/26/2023 1:25 PM CDT): Skin mass on the forehead as well as the upper mid back. These feel very similar. Suspect lipoma versus epidermoid cyst. He is considering removal but does not really have time at this point. Provided names of dermatologists in the area. He would benefit from an all-over skin exam. He will set the appointment is convenience or call if he needs assistance Chest pain, unspecified type 03/14/2023 Morbid obesity 01/11/2023 Assessment & Plan (07/26/2023 1:18 PM CDT): Discussed the patient's BMI. The BMI is above average. BMI management plan is completed. BMI Follow-up includes: nutrition counseling, exercise counseling and education provided. Patient has an obesity-related condition (not limited to: hypertension, obstructive sleep apnea, osteoarthritis, hyperlipidemia, diabetes, etc.). Therefore, morbid obesity may be documented for patients with a BMI between 35.00-39.99. Assessment & Plan (01/11/2023 8:49 AM CDT): Discussed the patient's BMI. The BMI is above average. BMI management plan is completed. BMI Follow-up includes: nutrition counseling, exercise counseling and education provided. Prostate cancer screening 01/11/2023 Assessment & Plan (07/26/2023 1:18 PM CDT): Check PSA Assessment & Plan (01/11/2023 10:40 PM CDT): Check PSA Fatigue 07/21/2022 Assessment & Plan (07/26/2023 1:17 PM CDT): Probably multifactorial. Check labs and followup to re-evaluate Assessment & Plan (01/11/2023 10:40 PM CDT): Probably multifactorial. Check labs and followup to re-evaluate Assessment & Plan (07/21/2022 10:12 AM CDT): Probably multifactorial. Check labs and followup to re-evaluate Stress and adjustment reaction 06/16/2021 Assessment & Plan (07/26/2023 1:17 PM CDT): Patient is stressed based on situations at work. Is on Lexapro 10 and happy with the results. Does not want to increase dosing at this time. Encouraged EAP counseling and he may call at any time for further assistance as needed Assessment & Plan (07/21/2022 10:12 AM CDT): Stable with Lexapro 10 Assessment & Plan (07/19/2021 12:09 PM CDT): Migraines. Patient is tolerating well. Will continue with the same dose if his symptoms seems to increase her exacerbate he may call and we will increase to 20 mg. 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 He voices understanding will consider Assessment & Plan (06/18/2021 5:34 PM PRECISION MACHINE OPERATOR): This is a significant, separately identifiable problem that was evaluated and managed on the same day as the wellness exam Discussed stress sxs at length including treatment options of medication, counseling and behavioral modification. Encouraged good sleep hygeine, good nutrition and exercise. Will continue to monitor closely. Currently no suicidal or homicidal thoughts. May call at anytime if needs assistance. Will start Lexapro 10mg Reviewed risks, benefit, alternatives, side effects and proper use. Follow-up in 4-6 weeks to reassess History of 2019 novel coronavirus disease (COVID -19) 08/19/2020 Overview (11/09/2020): 07/2020 Assessment & Plan (08/19/2020 2:14 PM CDT): Patient advised to report to er now for further evaluation and treatment, will contact EMS for transport. Report called by provider to Dr. Henson at [facility]. Chest tightness 08/19/2020 Assessment & Plan (08/19/2020 2:14 PM CDT): Patient advised to report to er now for further evaluation and treatment, will contact EMS for transport. Report called by provider to Dr. Henson at [place]. Annual physical exam 04/22/2020 Assessment & Plan (07/26/2023 1:16 PM CDT): Encouraged healthy lifestyle, good nutrition and exercise. Encouraged Calcium and Vitamin D and weight bearing exercise for bone health. Reviewed immunizations Reviewed age appropirate screenings. Assessment & Plan (07/21/2022 10:12 AM CDT): Encouraged healthy lifestyle, good nutrition and exercise. Encouraged Calcium and Vitamin D and weight bearing exercise for bone health. Reviewed immunizations Reviewed age appropirate screenings. Assessment & Plan (06/16/2021 11:06 AM PRECISION MACHINE OPERATOR): Encouraged healthy lifestyle, good nutrition and exercise. Encouraged Calcium and Vitamin D and weight bearing exercise for bone health. Reviewed immunizations Reviewed age appropirate screenings. Assessment & Plan (05/05/2020 9:34 PM PRECISION MACHINE OPERATOR): Encouraged healthy lifestyle, good nutrition and exercise. Encouraged Calcium and Vitamin D and weight bearing exercise for bone health. Reviewed immunizations Reviewed age appropirate screenings. Neuropathy due to type 2 diabetes mellitus (CMS/ HCC) 11/19/2019 Assessment & Plan (07/26/2023 1:16 PM CDT): Continue tight control of diabetes. Currently managing without additional medications Assessment & Plan (05/05/2020 9:32 PM PRECISION MACHINE OPERATOR): Stressed importance of continued A1c control to minimize the middle or intermediate school principal effects of diabetes. Bring accuchecks to office when instructed to do so. Check A1c about every 3-6 months. Take medication as prescribed. Get annual eye exam. Encouraged NAN/Statin if able to tolerate. Encouraged weight control and encouraged diabetic diet and exercise. Continue tight control Assessment & Plan (11/19/2019 6:45 PM CDT): Reviewed DM foot care to avoid problems. Monitor and control DM tightly Left anterior knee pain 11/19/2019 Overview (11/19/2019): Refer to Ortho -- [facility] location. BMI 35.0-35.9,adult 12/06/2018 Assessment & Plan (07/26/2023 1:17 PM CDT): Discussed the patient's BMI. The BMI is above average. BMI management plan is completed. BMI Follow-up includes: nutrition counseling, exercise counseling and education provided. Assessment & Plan (12/06/2018 10:50 AM CDT): Obesity is unchanged. Discussed the patient's BMI. The BMI is above average. BMI management plan is completed. BMI Follow-up includes: nutrition counseling, exercise counseling and education provided. Chest pain 08/31/2017 Assessment & Plan (08/31/2017 4:03 AM CDT): Atypical. Troponins negative x2. EKG showed normal sinus rhythm with no ST changes. The patient has a history of intermediate 2 vessel disease in 2014. Will order stress test and consult Cardiology if stress test is positive. Patient currently has no chest pain. Coronary artery disease of n ative artery of [place] heart with stable angina pectoris 08/31/2017 Overview (12/06/2018): History Cardiac Cath in 2014. No significant blockage. NO stents. Per pt was started on Plavix for prevention. Pt on BB, Statin Assessment & Plan (07/26/2023 1:14 PM CDT): History Cardiac Cath in 2014. No significant blockage. NO stents. Per pt was started on Plavix for prevention. Pt on BB, Statin Assessment & Plan (07/21/2022 10:11 AM CDT): Continue beta-rickey statin and Plavix Assessment & Plan (06/16/2021 11:06 AM PRECISION MACHINE OPERATOR): History Cardiac catheterization in 2014. Negative stress test in 2020. No stents have been placed. Per patient he is on Plavix for prevention. Patient is on beta-rickey statin. Encouraged him to contact his offset plate maker for these little twinges that he is feeling to see if additional workup or medication is needed. I am going to start him on Lexapro and will monitor the symptoms. Assessment & Plan (11/11/2020 11:05 AM CDT): History Cardiac Cath in 2014. No significant blockage. NO stents. Per pt was started on Plavix for prevention. Pt on BB, Statin Increased CP -- Cardio ordered stress test. Pending scheduling. Assessment & Plan (04/22/2020 2:18 PM PRECISION MACHINE OPERATOR): History Cardiac Cath in 2014. No significant blockage. NO stents. Per pt was started on Plavix for prevention. Pt on BB, Statin Assessment & Plan (12/06/2018 10:33 PM CDT): Stable. Continue with Cardio Assessment & Plan (08/31/2017 3:57 AM CDT): Continue aspirin and Plavix. Hold metoprolol for stress test. Continue lisinopril with hold parameters. Continue Lipitor. Diabetes mellitus with coincident hypertension 0 08/31/2017 Assessment & Plan (07/26/2023 1:16 PM CDT): Stressed importance of continued A1c control to minimize the senior care effects of diabetes. Bring accuchecks to office when instructed to do so. Check A1c about every 3-6 months. Take medication as prescribed. Get annual eye exam. Encouraged NAN/Statin if able to tolerate. Encouraged weight control and encouraged diabetic diet and exercise. Bp is stable/in acceptable range for any co-morbidities. Encouraged to limit sodium intake and exercise for weight control. Continue Rybelsus 14 mg as tolerating well with historically good control of his A1c. Due to recheck labs Blood pressure is significantly elevated today but he states he is very stressed. 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 Continue lisinopril 20 and metoprolol XL 25. Continue to monitor closely as this significant stressor comes to an end. If still elevated may need to adjust medications in conjunction with his offset plate maker Assessment & Plan (01/11/2023 10:40 PM CDT): Stressed importance of continued A1c control to minimize the middle or intermediate school principal effects of diabetes. Bring accuchecks to office when instructed to do so. Check A1c about every 3-6 months. Take medication as prescribed. Get annual eye exam. Encouraged NAN/Statin if able to tolerate. Encouraged weight control and encouraged diabetic diet and exercise. A1c is nicely controlled at 7.2. Continue Rybelsus 14mg Bp is stable/in acceptable range for any co-morbidities. Encouraged to limit sodium intake and exercise for weight control. Continue lisinopril 20 metoprolol XL 25 Assessment & Plan (07/21/2022 10:11 AM CDT): Bp is stable/in acceptable range for any co-morbidities. Encouraged to limit sodium intake and exercise for weight control. Continue lisinopril 20 metoprolol XL 25. Home readings have been more stable. Continue to monitor closely Stressed importance of continued A1c control to minimize the senior care effects of diabetes. Bring accuchecks to office when instructed to do so. Check A1c about every 3-6 months. Take medication as prescribed. Get annual eye exam. Encouraged NAN/Statin if able to tolerate. Encouraged weight control and encouraged diabetic diet and exercise. Significant improvement with the Rybelsus 14. A1c is at goal Assessment & Plan (04/20/2022 9:59 AM PRECISION MACHINE OPERATOR): Stressed importance of continued A1c control to minimize the middle or intermediate school principal effects of diabetes. Bring accuchecks to office when instructed to do so. Check A1c about every 3-6 months. Take medication as prescribed. Get annual eye exam. Encouraged NAN/Statin if able to tolerate. Encouraged weight control and encouraged diabetic diet and exercise. Bp is stable/in acceptable range for any co-morbidities. Encouraged to limit sodium intake and exercise for weight control. Continue lisinopril 20 metoprolol XL 25. He is tolerating Rybelsus 7 mg. Ready to increase to 14. Will be due to recheck A1c prior to his wellness exam after June 17, 2022. Will have him check this week CMP for stability of his kidney and liver function since starting the Rybelsus. Assessment & Plan (01/19/2022 6:45 PM CDT): Stressed importance of continued A1c control to minimize the middle or intermediate school principal effects of diabetes. Bring accuchecks to office when instructed to do so. Check A1c about every 3-6 months. Take medication as prescribed. Get annual eye exam. Encouraged ANN/Statin if able to tolerate. Encouraged weight control and encouraged diabetic diet and exercise. Bp is stable/in acceptable range for any co-morbidities. Encouraged to limit sodium intake and exercise for weight control. Discussed Rybelsus for cardiovascular benefits as well as weight loss benefits. Discussed tapering down the metformin and replacing with Rybelsus 3 mg x 4weeks then 7 mg x 4 weeks then up to maintenance dose of 14. Samples of 3 mg given and will send 7 mg to see about his coverage. Complete also provided. Follow-up pending coverage. Will be due to repeat labs in 4 weeks for CMP and normal diabetes labs in about 3 months. Blood pressure is a little elevated today. Continue lisinopril 20 metoprolol 25. Monitor readings at home and if consistently over 120/80 he is to call to adjust medication dosing. Assessment & Plan (06/16/2021 11:07 AM PRECISION MACHINE OPERATOR): Bp is stable/in acceptable range for any co-morbidities. Encouraged to limit sodium intake and exercise for weight control. Continue lisinopril and metoprolol. Stressed importance of continued A1c control to minimize the middle or intermediate school principal effects of diabetes. Bring accuchecks to office when instructed to do so. Check A1c about every 3-6 months. Take medication as prescribed. Get annual eye exam. Encouraged NAN/Statin if able to tolerate. Encouraged weight control and encouraged diabetic diet and exercise. Continue the metformin maximizing at 1 g b.i.d.. He states he has great taking in the morning but struggles with the nighttime dose encouraged him to just take at lunch since this is much more consistent. He is past due for labs so encouraged him to get the labs done so we can determine control and see if another additional medication as needed. Assessment & Plan (11/11/2020 11:06 AM CDT): Bp is stable/in acceptable range for any co-morbidities. Encouraged to limit sodium intake and exercise for weight control. Stressed importance of continued A1c control to minimize the senior care effects of diabetes. Bring accuchecks to office when instructed to do so. Check A1c about every 3-6 months. Take medication as prescribed. Get annual eye exam. Encouraged NAN/Statin if able to tolerate. Encouraged weight control and encouraged diabetic diet and exercise. Continue metformin. Currently taking 500mg bid. Await labs to determine control Assessment & Plan (05/05/2020 9:37 PM PRECISION MACHINE OPERATOR): Bp is stable/in acceptable range for any co-morbidities. Encouraged to limit sodium intake and exercise for weight control. Monitor closely at home and if readings remains above 140/90 he is to call to adjust meds. Stressed importance of continued A1c control to minimize the senior care effects of diabetes. Bring accuchecks to office when instructed to do so. Check A1c about every 3-6 months. Take medication as prescribed. Get annual eye exam. Encouraged NAN/Statin if able to tolerate. Encouraged weight control and encouraged diabetic diet and exercise. Continue metformin Assessment & Plan (11/19/2019 6:46 PM CDT): Bp is stable/in acceptable range for any co-morbidities. Encouraged to limit sodium intake and exercise for weight control. Continue lisinopril, metoprolol Assessment & Plan (04/10/2019 9:52 AM PRECISION MACHINE OPERATOR): Stressed importance of continued A1c control to minimize the middle or intermediate school principal effects of diabetes. Bring accuchecks to office when instructed to do so. Check A1c about every 3-6 months. Take medication as prescribed. Get annual eye exam. Encouraged NAN/Statin if able to tolerate. Encouraged weight control and encouraged diabetic diet and exercise. Bp is stable/in acceptable range for any co-morbidities. Encouraged to limit sodium intake and exercise for weight control. Assessment & Plan (12/06/2018 10:36 PM CDT): This is a significant, separately identifiable problem that was evaluated and managed on the same day as the wellness exam \Stressed importance of continued A1c control to minimize the senior care effects of diabetes. Bring accuchecks to office when instructed to do so. Check A1c about every 3-6 months. Take medication as prescribed. Get annual eye exam. Encouraged NAN/Statin if able to tolerate. Encouraged weight control and encouraged diabetic diet and exercise. New dx. Discussed end organ damage at length and screenings. On Statin/NAN> Discussed GLP and SGLT . Reviewed risks, benefit, alternatives, side effects and proper use. . Will have him maximize Metformin to 500mg 2 tabs bid and recheck labs at 3 months. If still elevated, will start GLP or SGLT. Offered senior information security analyst and he declines at this point. Bp is stable/in acceptable range for any co-morbidities. Encouraged to limit sodium intake and exercise for weight control. Assessment & Plan (08/31/2017 4:04 AM CDT): Low normotensive. Patient's lisinopril has been restarted with hold parameters. Metoprolol has been restarted for tomorrow with hold parameters as well. GERD (gastroesophageal reflux disease) 8 Assessment & Plan (07/26/2023 1:16 PM CDT): Continue PPI p.r.n. Assessment & Plan (07/21/2022 10:11 AM CDT): Continue PPI p.r.n. Assessment & Plan (11/11/2020 11:06 AM CDT): Continue PPI Assessment & Plan (05/05/2020 9:33 PM PRECISION MACHINE OPERATOR): Continue PPI Assessment & Plan (12/06/2018 10:37 PM CDT): Stable with PPI Assessment & Plan (08/31/2017 3:57 AM CDT): Continue PPI Type 2 diabetes mellitus with hyperlipidemia Assessment & Plan (07/26/2023 1:17 PM CDT): Encouraged patient to follow low fat/low chol diet like the Mediterranean diet. Increase good fats in the diet. Increase exercise. Monitor labs as needed. Continue Lipitor 80 and Vascepa Assessment & Plan (01/11/2023 10:40 PM CDT): Encouraged patient to follow low fat/low chol diet like the Mediterranean diet. Increase good fats in the diet. Increase exercise. Monitor labs as needed. Continue atorvastatin and Vascepa Assessment & Plan (07/21/2022 10:12 AM CDT): Continue Lipitor 80 and Vascepa Assessment & Plan (04/20/2022 9:59 AM PRECISION MACHINE OPERATOR): Stressed importance of continued A1c control to minimize the senior care effects of diabetes. Bring accuchecks to office when instructed to do so. Check A1c about every 3-6 months. Take medication as prescribed. Get annual eye exam. Encouraged NAN/Statin if able to tolerate. Encouraged weight control and encouraged diabetic diet and exercise. Encouraged patient to follow low fat/low chol diet like the Mediterranean diet. Increase good fats in the diet. Increase exercise. Monitor labs as needed. Continue statin and Vascepa Assessment & Plan (01/19/2022 6:45 PM CDT): Encouraged patient to follow low fat/low chol diet like the Mediterranean diet. Increase good fats in the diet. Increase exercise. Monitor labs as needed. Continue Lipitor 80 mg Assessment & Plan (06/16/2021 11:06 AM PRECISION MACHINE OPERATOR): Encouraged patient to follow fat/low chol diet like the Mediterranean diet. Increase good fats in the diet. Increase exercise. Monitor labs as needed. Continue statin and Vascepa Assessment & Plan (11/11/2020 11:06 AM CDT): Encouraged patient to follow fat/low chol diet like the Mediterranean diet. Increase good fats in the diet. Increase exercise. Monitor labs as needed. Continue statin Assessment & Plan (05/05/2020 9:33 PM PRECISION MACHINE OPERATOR): Encouraged patient to follow fat/low chol diet like the Mediterranean diet. Increase good fats in the diet. Increase exercise. Monitor labs as needed. Continue satin and fenofibrate Assessment & Plan (11/19/2019 6:47 PM CDT): Encouraged patient to continue low fat/low chol diet. Continue exercise. Increase good fats in the diet. Monitor labs as needed. Continue statin Assessment & Plan (12/06/2018 10:37 PM CDT): Stressed importance of continued A1c control to minimize the senior care effects of diabetes. Bring accuchecks to office when instructed to do so. Check A1c about every 3-6 months. Take medication as prescribed. Get annual eye exam. Encouraged NAN/Statin if able to tolerate. Encouraged weight control and encouraged diabetic diet and exercise. Encouraged patient to continue low fat/low chol diet. Continue exercise. Increase good fats in the diet. Monitor labs as needed. Assessment & Plan (08/31/2017 3:57 AM CDT): Continue statin and fenofibrate Resolved Problems Problem Noted Date Diagnosed Date Resolved Date BMI 34.0-34.9,adult 01/11/2023 07/26/19 24 Assessment & Plan (01/11/2023 8:49 AM CDT): Discussed the patient's BMI. The BMI is above average. BMI management plan is completed. BMI Follow-up includes: nutrition counseling, exercise counseling and education provided. Morbid obesity 07/21/2022 01/11/2023 Assessment & Plan (07/21/2022 9:04 AM CDT): Discussed the patient's BMI. The BMI is above average. BMI management plan is completed. BMI Follow-up includes: nutrition counseling, exercise counseling and education provided. BMI 35.0-35.9,adult 07/21/2022 01/12/20 23 Assessment & Plan (07/21/2022 9:04 AM CDT): Discussed the patient's BMI. The BMI is above average. BMI management plan is completed. BMI Follow-up includes: nutrition counseling, exercise counseling and education provided. Morbid obesity 06/16/2021 07/21/2022 Assessment & Plan (04/20/2022 10:00 AM PRECISION MACHINE OPERATOR): Discussed the patient's BMI. The BMI is above average. BMI management plan is completed. BMI Follow-up includes: nutrition counseling, exercise counseling and education provided. Patient has an obesity-related condition (not limited to: hypertension, obstructive sleep apnea, osteoarthritis, hyperlipidemia, diabetes, etc.). Therefore, morbid obesity may be documented for patients with a BMI between 35.00-39.99. Assessment & Plan (01/19/2022 6:45 PM CDT): Discussed the patient's BMI. The BMI is above average. BMI management plan is completed. BMI Follow-up includes: nutrition counseling, exercise counseling and education provided. Assessment & Plan (07/17/2021 8:17 AM CDT): Obesity is unchanged. Discussed the patient's BMI. The BMI is above average. BMI management plan is completed. BMI Follow-up includes: nutrition counseling, exercise counseling and education provided. Assessment & Plan (06/16/2021 9:46 AM PRECISION MACHINE OPERATOR): Obesity is unchanged. Discussed the patient's BMI. The BMI is above average. BMI management plan is completed. BMI Follow-up includes: nutrition counseling, exercise counseling and education provided. BMI 35.0-35.9,adult 06/16/2021 07/22/19 Assessment & Plan (04/20/2022 10:01 AM PRECISION MACHINE OPERATOR): Discussed the patient's BMI. The BMI is above average. BMI management plan is completed. BMI Follow-up includes: nutrition counseling, exercise counseling and education provided. Assessment & Plan (01/19/2022 6:45 PM CDT): Discussed the patient's BMI. The BMI is above average. BMI management plan is completed. BMI Follow-up includes: nutrition counseling, exercise counseling and education provided. Assessment & Plan (07/17/2021 8:17 AM CDT): Obesity is unchanged. Discussed the patient's BMI. The BMI is above average. BMI management plan is completed. BMI Follow-up includes: nutrition counseling, exercise counseling and education provided. Assessment & Plan (06/16/2021 9:46 AM PRECISION MACHINE OPERATOR): Obesity is unchanged. Discussed the patient's BMI. The BMI is above average. BMI management plan is completed. BMI Follow-up includes: nutrition counseling, exercise counseling and education provided. Prostate cancer screening 06/16/2021 Assessment & Plan (06/16/2021 11:07 AM PRECISION MACHINE OPERATOR): Check PSA Myalgia 04/21/2021 06/16/2021 Assessment & Plan (04/21/2021 9:11 AM PRECISION MACHINE OPERATOR): Patient to presume positive COVID/FLU until results are available and plan to self isolate for up to 10 days from the onset of sxs. Check COVID/FLU test thru [facility] collection site in [place]. If positive COVID, complete 10 day quarantine and consider monoclonal antibodies based on risk factors. If positive FLU, complete 5 day quarantine and be fever free for 24 hours without meds and may consider antiviral based on timing and risk factors. If negative, treat sxs and observe. Treat sxs with Tylenol, Cough/cold medication otc and add VitD 5,000IU daily and Zinc 50mg daily. Monitor sxs and call or go to the ER if has any of the following: --trouble breathing --persistent pain or pressure in the chest --new confusion --inability to wake or stay awake -- bluish lips or face If patient has been in close contact with anyone, they should be notified and instructed to quarantine per CDC guidelines for 14 days after last exposure to the positive COVID patient and monitor closely for symptoms of COVID. If they appear they should be tested. Close contact includes: --You were within 6 feet of someone who has COVID-19 for a total of 15 minutes or more --You provided care at home to someone who is sick with COVID-19 --You had direct physical contact with the person (hugged or kissed them) --You shared eating or drinking utensils --They sneezed, coughed, or somehow got respiratory droplets on you Additional Steps to avoid exposure/spread include: Avoid crowded places where close contact with others may occur, such as shopping centers, movie theaters, dormitories, or stadiums. Avoid transit where close contact with others may occur, such as planes, trains, and buses. Maintain a distance of approximately 6 feet from other people whenever possible (spacing out if you are in a line, leaving 2 seats in between others at a waiting room when possible). Wash your hands with soap and water often. If needed, use a hand mucker operator that contains at least 60% alcohol. Clean and disinfect frequently touched surfaces such as tables, doorknobs, countertops, etc daily. Avoid touching your eyes, nose, and mouth when possible. Obesity (BMI 30-39.9) 11/11/20202021 Assessment & Plan (11/11/2020 8:25 AM CDT): Obesity is unchanged. Discussed the patient's BMI. The BMI is above average. BMI management plan is completed. BMI Follow-up includes: nutrition counseling, exercise counseling and education provided. BMI 33.0-33.9,adult 11/11/2020 06/17/19 22 Assessment & Plan (11/11/2020 8:25 AM CDT): Obesity is unchanged. Discussed the patient's BMI. The BMI is above average. BMI management plan is completed. BMI Follow-up includes: nutrition counseling, exercise counseling and education provided. Shortness of breath 08/19/2020 07/22/19 23 Assessment & Plan (08/19/2020 2:15 PM CDT): Patient advised to report to er now for further evaluation and treatment, will contact EMS for transport. Report called by provider to Dr. Henson at [place] [facility]. Fever 08/19/2020 07/21/2022 Assessment & Plan (08/19/2020 2:14 PM CDT): Patient advised to report to er now for further evaluation and treatment, will contact EMS for transport. Report called by provider to Dr. Henson at [place] [facility]. Cough 08/13/2020 06/16/2021 Assessment & Plan (08/13/2020 3:43 PM CDT): Will send patient to [place] for Covid-19 testing. The patient was advised to quarantine at least 10 days from symptom onset, but this determination will depend on result of testing. They were advised to contact us in the next 72h if they have not heard results of testing. They were advised to report to the ER if worsening. Exposure to COVID-19 virus 08/13/2020 0 11/09/2020 Assessment & Plan (08/13/2020 3:43 PM CDT): Will send patient to [place] for Covid-19 testing. The patient was advised to quarantine at least 10 days from symptom onset, but this determination will depend on result of testing. They were advised to contact us in the next 72h if they have not heard results of testing. They were advised to report to the ER if worsening. BMI 34.0-34.9,adult 04/22/2020 11/12/19 21 Assessment & Plan (04/22/2020 8:48 AM PRECISION MACHINE OPERATOR): Obesity is unchanged. Discussed the patient's BMI. The BMI is above average. BMI management plan is completed. BMI Follow-up includes: nutrition counseling, exercise counseling and education provided. Dysuria 04/22/2020 11/11/2020 Assessment & Plan (05/05/2020 9:34 PM PRECISION MACHINE OPERATOR): This is a significant, separately identifiable problem that was evaluated and managed on the same day as the wellness exam Possible passing of kidney stone in the last few weeks. Still a little dysuria Check UA/culture. If sxs return, will consider KUB vs CT Acute upper respiratory infection 01/17/2020 04/22/2020 Assessment & Plan (01/17/2020 9:28 PM CDT): URI vs sinusitis vs COVID== Offered COVID testing. He declined at this point. Start antibiotic, antihistamine (Claritin OR Zyrtec), Mucinex 12hour and Steroid nasal spray (Flonase). Cheratussin prn. Offered Albuterol inhaler and he declines. Push fluids. Rest. Supportive care. If sxs worsen or don\'t improve, pt is to followup in the office. If patient spikes a fever, has difficulty breathing, increased coughing and has trouble treating with otc medications he is to contact the office for further evaluation OR call ahead to the ER and seek immediate care. Hyperlipidemia 04/25/2019 11/19/2019 BMI 33.0-33.9,adult 04/10/2019 04/22/19 21 Assessment & Plan (11/19/2019 6:47 PM CDT): Obesity is unchanged. Discussed the patient's BMI. The BMI is above average. BMI management plan is completed. BMI Follow-up includes: nutrition counseling, exercise counseling and education provided. Assessment & Plan (04/10/2019 9:54 AM PRECISION MACHINE OPERATOR): Obesity is unchanged. Discussed the patient's BMI. The BMI is above average. BMI management plan is completed. BMI Follow-up includes: nutrition counseling, exercise counseling and education provided. Influenza vaccine refused 04/10/2019 Assessment & Plan (04/20/2022 10:00 AM PRECISION MACHINE OPERATOR): Encouraged vaccine. Reviewed risks/ benefits. Patient refuses and accepts risks. Assessment & Plan (05/05/2020 9:34 PM PRECISION MACHINE OPERATOR): Encouraged vaccine. Reviewed risks/ benefits. Patient refuses and accepts risks. Assessment & Plan (04/10/2019 10:00 AM PRECISION MACHINE OPERATOR): Encouraged vaccine. Reviewed risks/ benefits. Patient refuses and accepts risks. Bleeding from varicose vein 01/07/2019 04/25/2019 Assessment & Plan (04/10/2019 9:52 AM PRECISION MACHINE OPERATOR): Suspect his perineal bleeding is a varicosity-- Called [facility]ascular to see if referral was appropriate. [facility]ascular prefers to evaluate the chart so will send referral at this point. Assessment & Plan (01/07/2019 9:26 PM CDT): Suspect the bleeding is from a varicose vein near the scrotum or the perineum. It appears as though the source was closer to the right groin and bleeding thru the midline. Bleeding has slowed down. Pt will monitor closely and if bleeding persists, will need to apply pressure. It appears as though it has slowed down signficantly. Will refer to urology. If bleeding stops, may consider monitoring. Skin around the area is red so will start Bactrim to prevent infection. Pt voices understanding. Obesity (BMI 30-39.9) 12/06/20182020 Assessment & Plan (05/05/2020 9:33 PM PRECISION MACHINE OPERATOR): Obesity is unchanged. Discussed the patient's BMI. The BMI is above average. BMI management plan is completed. BMI Follow-up includes: nutrition counseling, exercise counseling and education provided. Assessment & Plan (11/19/2019 6:47 PM CDT): Obesity is unchanged. Discussed the patient's BMI. The BMI is above average. BMI management plan is completed. BMI Follow-up includes: nutrition counseling, exercise counseling and education provided. Assessment & Plan (04/10/2019 9:54 AM PRECISION MACHINE OPERATOR): Obesity is unchanged. Discussed the patient's BMI. The BMI is above average. BMI management plan is completed. BMI Follow-up includes: nutrition counseling, exercise counseling and education provided. Assessment & Plan (12/06/2018 10:50 AM CDT): Obesity is unchanged. Discussed the patient's BMI. The BMI is above average. BMI management plan is completed. BMI Follow-up includes: nutrition counseling, exercise counseling and education provided. Need for Tdap vaccination 12/06/2018 Assessment & Plan (12/06/2018 10:37 PM CDT): Tdap updated in the office. Annual physical exam 12/06/2018 019 Assessment & Plan (12/06/2018 10:37 PM CDT): Encouraged healthy lifestyle, good nutrition and exercise. Encouraged Calcium and Vitamin D and weight bearing exercise for bone health. Reviewed immunizations Reviewed age appropirate screenings. Type 2 diabetes mellitus wit h circulatory disorder causing erectile dysfunction ([facility]) 12/06/2018 07/21/2022 Assessment & Plan (12/06/2018 10:36 PM CDT): This is a significant, separately identifiable problem that was evaluated and managed on the same day as the wellness exam Work on improved diabetes control to see if this has a positive effect on the erectile dysfunction. If persists may consider referral to urologist for further assessment. Uncontrolled type 2 diabetes mellitus with hyperglycemia 12/06/2018 11/19/2019 Other fatigue 12/06/2018 07/21/2022 Assessment & Plan (06/16/2021 11:06 AM PRECISION MACHINE OPERATOR): Probably multifactorial. Check labs and followup to re-evaluate Assessment & Plan (11/11/2020 11:07 AM CDT): Probably multifactorial. Check labs and followup to re-evaluate Assessment & Plan (05/05/2020 9:34 PM PRECISION MACHINE OPERATOR): Probably multifactorial. Check labs and followup to re-evaluate Assessment & Plan (04/10/2019 9:55 AM PRECISION MACHINE OPERATOR): Obesity is unchanged. Discussed the patient's BMI. The BMI is above average. BMI management plan is completed. BMI Follow-up includes: nutrition counseling, exercise counseling and education provided. Prostate cancer screening 12/06/2018 Assessment & Plan (04/10/2019 9:55 AM PRECISION MACHINE OPERATOR): Check labs Encounters Date Type Department Care Team Description 03/03/[address] [phone] Constance Arboleda PA High bp during colonosocpy -- 03/03/2024 Orders Only [address] [place] [id number] Provider, MD Priscilla from Last 3 Months Immunizations Name Administration Dates Next Due Influenza, Unspecified 04/12/2023(Deferr ed: Patient Refused),05/13/2022(Deferred: Patient Refused),04/12/2022(Deferred: Patient Refused),01/19/2022(Deferred: Patient Refused),06/16/2021(Deferred: Patient Refused),05/13/2021(Deferred: Patient Refused),06/11/2019(Deferred: Patient Refused),04/10/2019(Deferred: Patient Refused),01/10/2018(Deferred: Patient Refused) Tdap 12/06/2018 Surgical History Surgery Date Site/Laterality Comments FOOT SURGERY L foot surgery FOOT AMPUTATION THROUGH METATARSAL Left 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 accident cut off 2-5 toes ANAL FISSURECTOMY 09/11/2019 - 10/10/2019 COLONOSCOPY 09/03/2019 Medical History Medical History Date Comments GERD (gastroesophageal reflux disease) Hypertension Hyperlipidemia CAD (coronary artery disease) cc 2014 80% blockage but no stent Diabetes mellitus (HCC) Family History Medical History Relation Name Comments Other Brother stent x1 placed at 42 y/o; Diabetes Father Diabetes mellit us; Hypertension Father Hypertension; Other Father asbestos; Stroke Father Stroke; Diabetes Mother Wero young Hypertension Mother Wero young Hypertension; Other Sister x 2 Alive and well; Relation Name Status Comments Brother Father Mother Wero young Alive Sister x 2 Alive Social History Tobacco Use Types Packs/Day Years Used Date Smoking Tobacco: Never Smokeless Tobacco: Never Tobacco Cessation:Counseling Given: Not Answered Alcohol Use Standard Drinks/Week Comments Yes 7 (1 standard drink = 0.6 oz pur e alcohol) monthly AUDIT-C Answer Date Recorded Q1: How often do you have a drink containing alc ohol? Monthly or less 07/26/2023 Q2: How many drinks containi ng alcohol do you have on a typical day when you are drinking? 3 or 4 07/26/2023 Q3: How often do you have si x or more drinks on one occasion? Less than monthly 07/26/2023 PHQ-2 Answer Date Recorded PHQ-2 Total Score 2 07/26/2023 Personal Safety Answer Date Recorded Have you ever been in or are you currently in a harmful physical or emotional relationship or is someone making you feel afraid or unsafe? 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 Not on file Not on file Obstetrics History Last Filed Vital Signs Vital Sign Reading Time Taken Comments Blood Pressure 158/100 07/26/2023 10:37 AM CDT took BP in both arms same reading 158/100 Pulse 80 07/26/2023 10:37 AM CDT Temperature 36.7 C (98.1 F) 07/26/2023 10:37 AM CDT Respiratory Rate 15 03/19/2023 9:08 AM PRECISION MACHINE OPERATOR Oxygen Saturation 97% 07/26/2023 10: 37 AM CDT Inhaled Oxygen Concentration - - Weight 96.4 kg (212 lb 9.6 oz) 07/26/2023 10:37 AM CDT Height 165.1 cm (5' 5 ) 07/26/2023 10:3 7 AM CDT Body Mass Index 35.38 07/26/2023 10:37 AM CDT Plan of Treatment Health Maintenance Due Date Last Done Comments Hepatitis C Screening 1970 Pneumococcal vaccine <65 (1 of 2 - PCV) 1976 Hepatitis B Screening 1988 Foot Exam 10/15/2020 10/16/2019 Zoster Vaccine (1 of 2) 2020 Dilated Eye Exam 08/02/2023 08/01/2022, 10/2021, 12/05/2018 Covid-19 Vaccine (2 - 2023-2 5 season) 2023 04/07/2021 Influenza Vaccine (#1) 2023 Hemoglobin A1C 04/07/2024 10/07/2023, 04/1 04/2022, 06/16/2021, Additional history exists Depression Screening 07/25/2024 07/26/2023, 01/11/2023, 07/21/2022, Additional history exists Regular Well Visit/Exam 18-64 07/25/2024, 07/21/2022, 06/16/2021, Additional history exists Albumin Creatinine Ratio, Urine 10/06/2024 Lipid Panel 10/06/2024 10/07/2023, 03/0 10/2021, 11/11/2020, Additional history exists eGFR 10/06/2024 10/07/2023, 12/0 06/2022, 07/16/2022, Additional history exists Prostate Cancer Screening-PSA 10/06/2025, 06/16/2021, 04/10/2019 Colon Cancer Screening-Colonoscopy 03/03/20272023, 08/21/2019 DTaP/Tdap/Td Vaccine (2 - Td or Tdap) 12/06/2028 12/06/2018 Procedures Procedure Name Priority Date/Time Associated Diagnosis Comments HM COLONOSCOPY Routine 03/03/2024 1:35 PM PRECISION MACHINE OPERATOR COMPREHENSIVE METABOLIC PANEL Routine 10/07/2023 9:04 AM CDT HEMOGLOBIN A1C Routine 10/07/2023 9:04 AM CDT LIPID PANEL Routine 10/07/2023 9:04 AM CDT ALBUMIN CREATININE RATIO, URINE Routine 10/07/2023 9:04 AM CDT PSA SCREEN Routine 10/07/2023 9:04 AM CDT DIABETES EYE EXAM Routine 08/01/2022 11:51 AM CDT from Last 3 Months or Most Recently Relevant to Health Maintenance Results * (ABNORMAL) COLONOSCOPY (03/03/2024 1:35 PM PRECISION MACHINE OPERATOR) Scribed Colonoscopy Abnormal Historical Provider HEALTH MAINTENANCE Edited Result - Final * PSA screen (10/07/2023 9:04 AM CDT) PSA 0.47 < OR = 4.00 ng/mL [facility] Comment: The total PSA value from this assay system is standardized against the WHO standard. The test result will be approximately 20% lower when compared to the equimolar-standardized total PSA (Yumiko Indu). Comparison of serial PSA results should be interpreted with this fact in mind. This test was performed using the Siemens chemiluminescent method. Values obtained from different assay methods cannot be used interchangeably. PSA levels, regardless of value, should not be interpreted as absolute evidence of the presence or absence of disease. 10/07/2023 9:04 AM CDT 10/07/2023 9:07 AM CDT Narrative [facility] - 10/08/2023 5:23 PM CDT FASTING:YES FASTING: YES Constance MATHIAS LAB BLOOD ORDERABLES Final Result [facility] [address] [phone] * (ABNORMAL) Albumin Creatinine Ratio, Urine (10/07/2023 9:04 AM CDT) Creatinine, ur 406(H) 20 - 320 mg/dL [facility] Microalbumin, ur 6.2 See Note: mg/dL [facility] Comment: Reference Range: Reference Range Not established Microalbumin/creat ratio 15 <30 mg/g creat [facility] Comment: The ADA defines abnormalities in albumin excretion as follows: Albuminuria Category Result (mg/g creatinine) Normal to Mildly increased <30 Moderately increased 30-299 Severely increased > OR = 300 The ADA recommends that at least two of three specimens collected within a 3-6 month period be abnormal before considering a patient to be within a diagnostic category. 10/07/2023 9:04 AM CDT 10/07/2023 9:07 AM CDT [facility] - 10/08/2023 5:23 PM CDT FASTING:YES FASTING: YES Constance MATHIAS LAB URINE ORDERABLES Final Result [facility] [address] [place] [address] * (ABNORMAL) Hemoglobin A1c (10/07/2023 9:04 AM CDT) Hgb A1C 8.8(H) <5.7 % of total Hgb [facility] Comment: For someone without known diabetes, a hemoglobin A1c value of 6.5% or greater indicates that they may have diabetes and this should be confirmed with a follow-up test. For someone with known diabetes, a value <7% indicates that their diabetes is well controlled and a value greater than or equal to 7% indicates suboptimal control. A1c targets should be individualized based on duration of diabetes, age, comorbid conditions, and other considerations. Currently, no consensus exists regarding use of hemoglobin A1c for diagnosis of diabetes for children. This test was performed on the Elida kelley c503 platform. Effective 06/28/23, a change in test platforms from the [employer] Water Pollution Scientist to the Elida kelley c503 may have shifted HbA1c results compared to historical results. Based on laboratory validation testing conducted at [facility], the Elida platform relative to the [employer] platform had an average increase in HbA1c value of < or = 0.3%. This difference is within accepted variability established by the National Glycohemoglobin Standardization Program. Note that not all individuals will have had a shift in their results and direct comparisons between historical and current results for testing conducted on different platforms is not recommended. 10/07/2023 9:04 AM CDT 10/07/2023 9:07 AM CDT Narrative [facility] - 10/08/2023 5:23 PM CDT FASTING:YES FASTING: YES us Constance MATHIAS LAB BLOOD ORDERABLES Final Result [facility] [address] [place] [address] * (ABNORMAL) Lipid panel (10/07/2023 9:04 AM CDT) [facility] Cholesterol 154 <200 mg/dL [facility] HDL 28(L) > OR = 40 mg/dL [facility] Triglycerides 342(H) <150 mg/dL [facility] Comment: If a non-fasting specimen was collected, consider repeat triglyceride testing on a fasting specimen if clinically indicated. Eduardo et al. J. of Clin. Lipidol. 2015;9:129-169. LDL 85 mg/dL (calc) [facility] Comment: Reference range: <100 Desirable range <100 mg/dL for primary prevention; <70 mg/dL for patients with CHD or diabetic patients with > or = 2 CHD risk factors. LDL-C is now calculated using the Tristan-Chani calculation, which is a validated novel method providing better accuracy than the Friedewald equation in the estimation of LDL-C. Tristan SS et al. VAIBHAV. 2013;310(19): 4893-6057 (http://education.Mobile Fuel/faq/KFV470) Chol/HDL ratio 5.5(H) <5.0 (calc) [facility] Non-HDL, (LDL+VLDL) 126 <130 mg/dL (calc) [facility] Comment: For patients with diabetes plus 1 major ASCVD risk factor, treating to a non-HDL-C goal of <100 mg/dL (LDL-C of <70 mg/dL) is considered a therapeutic option. 10/07/2023 9:04 AM CDT 10/07/2023 9:07 AM CDT Narrative [facility] - 10/08/2023 5:23 PM CDT FASTING:YES FASTING: YES Constance MATHIAS LAB BLOOD ORDERABLES Final Result [facility] [address] [facility] [place] [address] * (ABNORMAL) Comprehensive metabolic panel (10/07/2023 9:04 AM CDT) Pathologist [facility] Glucose 186(H) 65 - 99 mg/dL [facility] Comment: Fasting reference interval For someone without known diabetes, a glucose value >125 mg/dL indicates that they may have diabetes and this should be confirmed with a follow-up test. BUN 12 7 - 25 mg/dL [facility] Creatinine 0.83 0.70 - 1.30 mg/dL [facility] eGFR 105 > OR = 60 mL/min/1.7 3m2 [facility] BUN/creat ratio SEE NOTE: 6 - 22 (calc) [facility] Comment: Not Reported: BUN and Creatinine are within reference range. Sodium 139 135 - 146 mmol/L [facility] Potassium, pl 4.0 3.5 - 5.3 mmol/L [facility] Chloride 104 98 - 110 mmol/L [facility] CO2 24 20 - 32 mmol/L [facility] Calcium 9.0 8.6 - 10.3 mg/dL [facility] Protein, sr 6.3 6.1 - 8.1 g/dL [facility] Albumin 4.2 3.6 - 5.1 g/dL [facility] GLOBULIN 2.1 1.9 - 3.7 g/dL (calc) [facility] Alb/glob ratio 2.0 1.0 - 2.5 (calc) [facility] Bilirubin, total 0.5 0.2 - 1.2 mg/dL [facility] Alk phos 73 35 - 144 U/L [facility] AST 24 10 - 35 U/L [facility] ALT (SGPT) 35 9 - 46 U/L [facility] 10/07/2023 9:04 AM CDT 10/07/2023 9:07 AM CDT Narrative [facility] - 10/08/2023 5:23 PM CDT FASTING:YES FASTING: YES Constance MATHIAS LAB BLOOD ORDERABLES Final Result [facility] [address] [place] [address] * DIABETES EYE EXAM (08/01/2022 11:51 AM CDT) Historical Provider HEALTH MAINTENANCE Edited Result - Final from Last 3 Months or Most Recently Relevant to Health Maintenance Insurance [employer] OOS Member Subscriber Plan / Payer (Ef fective 2021-Present) Name:Tim Mishra Relation to Subscriber:Self Name:Tim Mishra Payer ID:[id number] (NAIC) Type: [employer] Address: [facility] [address] [place] [phone] BLUE ACCESS OOS Advance Directives For more information, please contact: [phone] * Full Code (Latest Code Status on File) Date Activated Date Inactivated Comments 03/14/2023 9:15 AM 03/16/2023 3:09 PM * Full Code Date Activated Date Inactivated Comments 08/30/2017 4:21 PM 08/31/2017 4:10 PM Care Teams Kitchen Stewardess Relationship Specialty Start Date End Date Constance Arboleda PA [address] [facility] [address] [place] [address] PCP - General Internal Medicine 11/17/18 [place] [address] [place] [address] Consulting Physician Cardiology 08/31/17
--- OUTSIDE RECORDS SUMMARY | 2024-05-23 15:45 | XMS_ITS | Referral Summary ---
Author Organization [facility] [address] [facility] lt Address [address] [place] [address] Care Team Providers Care Chemical Manager Name Role Phone Joshua De MD Unavailable Constance Arboleda Primary Care Provider [phone] Encounters Date Type Department Care Team Description 03/03/2024 Telephone [facility] [address] [place] [address] [place] [phone] Constance Arboleda PA High bp during colonosocpy -- 03/03/2024 Orders Only [address] [place] [phone] Provider, MD Priscilla from Last 3 Months Allergies Active Allergy Reactions Criticality Noted Date [...] tablet TAKE 1 TABLET(14 MG) BY MOUTH RETAIL SUPERVISOR BEFORE BREAKFAST 90 tablet 1 10/12/19 24 [...] encouraged him to get in with his matrix worker because he is still having occasional chest twinges that did not change at all with the addition of the Lexapro. He voices understanding will consider Assessment & Plan (06/18/2021 5:34 PM BUSINESS MANAGEMENT INTERN): This is a significant, separately identifiable problem [...] called by provider to Dr. Henson at [facility]. Chest tightness 08/19/2020 Assessment & Plan (08/19/2020 2:14 PM CDT): Patient advised to report to er now for further evaluation and treatment, will contact EMS for transport. Report called by provider to Dr. Henson at [facility]. Annual physical exam 04/22/2020 Assessment & [...] screenings. Assessment & Plan (06/16/2021 11:06 AM BUSINESS MANAGEMENT INTERN): Encouraged healthy lifestyle, good nutrition and exercise. Encouraged Calcium and Vitamin D and weight bearing exercise for bone health. Reviewed immunizations Reviewed age appropirate screenings. Assessment & Plan (05/05/2020 9:34 PM BUSINESS MANAGEMENT INTERN): Encouraged healthy lifestyle, good nutrition and exercise. Encouraged Calcium and Vitamin D and weight bearing exercise for bone health. Reviewed immunizations Reviewed age appropirate screenings. Neuropathy due to type 2 diabetes mellitus (CMS/ HCC) 11/19/2019 Assessment & Plan (07/26/2023 1:16 PM CDT): Continue tight control of diabetes. 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 Bring accuchecks to office [...] 11/19/2019 Overview (11/19/2019): Refer to Ortho -- prefers [place] location. BMI 35.0-35.9,adult 12/06/2018 Assessment & Plan [...] artery disease of n ative artery of [place] heart with stable angina pectoris 08/31/2017 Overview [...] Plavix Assessment & Plan (06/16/2021 11:06 AM BUSINESS MANAGEMENT INTERN): History Cardiac catheterization in 2014. Negative stress test in 2020. No stents have been placed. Per patient he is on Plavix for prevention. Patient is on beta-rickey statin. Encouraged him to contact his matrix worker for these little twinges that he is [...] scheduling. Assessment & Plan (04/22/2020 2:18 PM BUSINESS MANAGEMENT INTERN): History Cardiac Cath in 2014. 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 Bring accuchecks to office [...] to adjust medications in conjunction with his matrix worker Assessment & Plan (01/11/2023 10:40 PM CDT): Stressed importance of continued A1c control to minimize the fpc effects of diabetes. 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 Bring accuchecks to office when instructed to do so. Check A1c about every 3-6 months. Take medication as prescribed. Get annual eye exam. Encouraged NAN/Statin if able to tolerate. Encouraged weight control and encouraged diabetic diet and exercise. Significant improvement with the Rybelsus 14. A1c is at goal Assessment & Plan (04/20/2022 9:59 AM BUSINESS MANAGEMENT INTERN): Stressed importance of continued A1c control to minimize the fpc effects of diabetes. Bring accuchecks to office [...] of continued A1c control to minimize the fpc effects of diabetes. Bring accuchecks to office [...] dosing. Assessment & Plan (06/16/2021 11:07 AM BUSINESS MANAGEMENT INTERN): Bp is stable/in acceptable range for any co-morbidities. Encouraged to limit sodium intake and exercise for weight control. Continue lisinopril and metoprolol. Stressed importance of continued A1c control to minimize the fpc effects of diabetes. Bring accuchecks to office [...] of continued A1c control to minimize the fpc effects of diabetes. Bring accuchecks to office when instructed to do so. Check A1c about every 3-6 months. Take medication as prescribed. Get annual eye exam. Encouraged NAN/Statin if able to tolerate. Encouraged weight control and encouraged diabetic diet and exercise. Continue metformin. Currently taking 500mg bid. Await labs to determine control Assessment & Plan (05/05/2020 9:37 PM BUSINESS MANAGEMENT INTERN): Bp is stable/in acceptable range for any co-morbidities. Encouraged to limit sodium intake and exercise for weight control. Monitor closely at home and if readings remains above 140/90 he is to call to adjust meds. 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 Bring accuchecks to office [...] metoprolol Assessment & Plan (04/10/2019 9:52 AM BUSINESS MANAGEMENT INTERN): Stressed importance of continued A1c control to minimize the fpc effects of diabetes. Bring accuchecks to office [...] of continued A1c control to minimize the fpc effects of diabetes. Bring accuchecks to office [...] elevated, will start GLP or SGLT. Offered operations scheduler and he declines at this point. Bp [...] PPI Assessment & Plan (05/05/2020 9:33 PM BUSINESS MANAGEMENT INTERN): Continue PPI Assessment & Plan (12/06/2018 10:37 [...] Vascepa Assessment & Plan (04/20/2022 9:59 AM BUSINESS MANAGEMENT INTERN): Stressed importance of continued A1c control to minimize the fpc effects of diabetes. 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 Bring accuchecks to office [...] 07/21/2022 Assessment & Plan (04/20/2022 10:00 AM BUSINESS MANAGEMENT INTERN): Discussed the patient's BMI. The BMI is [...] provided. Assessment & Plan (06/16/2021 9:46 AM BUSINESS MANAGEMENT INTERN): Obesity is unchanged. Discussed the patient's BMI. The BMI is above average. BMI management plan is completed. BMI Follow-up includes: nutrition counseling, exercise counseling and education provided. BMI 35.0-35.9,adult 06/16/2021 07/22/19 23 Assessment & Plan (04/20/2022 10:01 AM BUSINESS MANAGEMENT INTERN): Discussed the patient's BMI. The BMI is [...] provided. Assessment & Plan (06/16/2021 9:46 AM BUSINESS MANAGEMENT INTERN): Obesity is unchanged. Discussed the patient's BMI. The BMI is above average. BMI management plan is completed. BMI Follow-up includes: nutrition counseling, exercise counseling and education provided. Prostate cancer screening 06/16/2021 Assessment & Plan (06/16/2021 11:07 AM BUSINESS MANAGEMENT INTERN): Check PSA Myalgia 04/21/2021 06/16/2021 Assessment & Plan (04/21/2021 9:11 AM BUSINESS MANAGEMENT INTERN): Patient to presume positive COVID/FLU until results are available and plan to self isolate for up to 10 days from the onset of sxs. Check COVID/FLU test thru [facility] collection site in [place]. If positive COVID, complete 10 day quarantine [...] water often. If needed, use a hand mortgage banker that contains at least 60% alcohol. Clean [...] called by provider to Dr. Henson at [facility]. Fever 08/19/2020 07/21/2022 Assessment & Plan (08/19/2020 2:14 PM CDT): Patient advised to report to er now for further evaluation and treatment, will contact EMS for transport. Report called by provider to Dr. Henson at [facility]. Cough 08/13/2020 06/16/2021 Assessment & Plan (08/13/2020 3:43 PM CDT): Will send patient to [place] for Covid-19 testing. The patient was advised [...] 3:43 PM CDT): Will send patient to [place] for Covid-19 testing. The patient was advised to quarantine at least 10 days from symptom onset, but this determination will depend on result of testing. They were advised to contact us in the next 72h if they have not heard results of testing. They were advised to report to the ER if worsening. BMI 34.0-34.9,adult 04/22/2020 11/12/19 Assessment & Plan (04/22/2020 8:48 AM BUSINESS MANAGEMENT INTERN): Obesity is unchanged. Discussed the patient's BMI. The BMI is above average. BMI management plan is completed. BMI Follow-up includes: nutrition counseling, exercise counseling and education provided. Dysuria 04/22/2020 11/11/2020 Assessment & Plan (05/05/2020 9:34 PM BUSINESS MANAGEMENT INTERN): This is a significant, separately identifiable problem [...] provided. Assessment & Plan (04/10/2019 9:54 AM BUSINESS MANAGEMENT INTERN): Obesity is unchanged. Discussed the patient's BMI. The BMI is above average. BMI management plan is completed. BMI Follow-up includes: nutrition counseling, exercise counseling and education provided. Influenza vaccine refused 04/10/2019 Assessment & Plan (04/20/2022 10:00 AM BUSINESS MANAGEMENT INTERN): Encouraged vaccine. Reviewed risks/ benefits. Patient refuses and accepts risks. Assessment & Plan (05/05/2020 9:34 PM BUSINESS MANAGEMENT INTERN): Encouraged vaccine. Reviewed risks/ benefits. Patient refuses and accepts risks. Assessment & Plan (04/10/2019 10:00 AM BUSINESS MANAGEMENT INTERN): Encouraged vaccine. Reviewed risks/ benefits. Patient refuses and accepts risks. Bleeding from varicose vein 01/07/2019 04/25/2019 Assessment & Plan (04/10/2019 9:52 AM BUSINESS MANAGEMENT INTERN): Suspect his perineal bleeding is a varicosity-- [...] 12/06/20182020 Assessment & Plan (05/05/2020 9:33 PM BUSINESS MANAGEMENT INTERN): Obesity is unchanged. Discussed the patient's BMI. [...] provided. Assessment & Plan (04/10/2019 9:54 AM BUSINESS MANAGEMENT INTERN): Obesity is unchanged. Discussed the patient's BMI. [...] wit h circulatory disorder causing erectile dysfunction (CMS/HCC) 12/06/2018 07/21/2022 Assessment & Plan (12/06/2018 10:36 [...] 07/21/2022 Assessment & Plan (06/16/2021 11:06 AM BUSINESS MANAGEMENT INTERN): Probably multifactorial. Check labs and followup to re-evaluate Assessment & Plan (11/11/2020 11:07 AM CDT): Probably multifactorial. Check labs and followup to re-evaluate Assessment & Plan (05/05/2020 9:34 PM BUSINESS MANAGEMENT INTERN): Probably multifactorial. Check labs and followup to re-evaluate Assessment & Plan (04/10/2019 9:55 AM BUSINESS MANAGEMENT INTERN): Obesity is unchanged. Discussed the patient's BMI. The BMI is above average. BMI management plan is completed. BMI Follow-up includes: nutrition counseling, exercise counseling and education provided. Prostate cancer screening 12/06/2018 Assessment & Plan (04/10/2019 9:55 AM BUSINESS MANAGEMENT INTERN): Check labs Immunizations Name Administration Dates Next Due Influenza, Unspecified 04/12/2023(Deferr ed: Patient Refused),05/13/2022(Deferred: Patient Refused),04/12/2022(Deferred: Patient Refused),01/19/2022(Deferred: Patient Refused),06/16/2021(Deferred: Patient Refused),05/13/2021(Deferred: Patient Refused),06/11/2019(Deferred: Patient Refused),04/10/2019(Deferred: Patient Refused),01/10/2018(Deferred: Patient Refused) Tdap 12/06/2018 Social History Tobacco Use Types Packs/Day Years [...] on file Legal Sex Male 2:03 AM BUSINESS MANAGEMENT INTERN Gender Identity Male 04/22/2021 9:30 AM BUSINESS MANAGEMENT INTERN Sexual Orientation Straight 04/22/2020 7: 55 AM BUSINESS MANAGEMENT INTERN 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 Not on file Not on file Last Filed Vital Signs Vital Sign Reading Time Taken Comments Blood Pressure 158/100 07/26/2023 10:37 AM CDT took BP in both arms same reading 158/100 Pulse 80 07/26/2023 10:37 AM CDT Temperature 36.7 C (98.1 F) 07/26/2023 10:37 AM CDT Respiratory Rate 15 03/19/2023 9:08 AM BUSINESS MANAGEMENT INTERN Oxygen Saturation 97% 07/26/2023 10: 37 AM CDT Inhaled Oxygen Concentration - - Weight 96.4 kg (212 lb 9.6 oz) 07/26/2023 10:37 AM CDT Height 165.1 cm (5' 5 ) 07/26/2023 10:3 7 AM CDT Body Mass Index 35.38 07/26/2023 10:37 AM CDT Plan of Treatment Not on file Procedures Procedure Name Priority Date/Time Associated Diagnosis Comments HM COLONOSCOPY Routine 03/03/2024 1:35 PM BUSINESS MANAGEMENT INTERN COMPREHENSIVE METABOLIC PANEL Routine 10/07/2023 9:04 AM [...] Results * (ABNORMAL) COLONOSCOPY (03/03/2024 1:35 PM BUSINESS MANAGEMENT INTERN) Scribed Colonoscopy Abnormal Historical Provider HEALTH MAINTENANCE Edited Result - Final * PSA screen (10/07/2023 9:04 AM CDT) PSA 0.47 < OR = 4.00 ng/mL [facility] Comment: The total PSA value from this [...] LAB BLOOD ORDERABLES Final Result [facility] [address] [id number] * (ABNORMAL) Albumin Creatinine Ratio, Urine (10/07/2023 9:04 AM CDT) Creatinine, ur 406(H) 20 - 320 mg/dL [facility] Microalbumin, ur 6.2 See Note: mg/dL [facility] Comment: Reference Range: Reference Range Not established Microalbumin/creat ratio 15 <30 mg/g creat [facility] Comment: The ADA defines abnormalities in [...] AM CDT 10/07/2023 9:07 AM CDT Narrative [facility] - 10/08/2023 5:23 PM CDT FASTING:YES FASTING: YES Constance MATHIAS LAB URINE ORDERABLES Final Result [facility] [address] [place] [address] * (ABNORMAL) Hemoglobin A1c (10/07/2023 9:04 AM CDT) Hgb A1C 8.8(H) <5.7 % of total Hgb [facility] Comment: For someone without known diabetes, [...] change in test platforms from the Pozo Maintenance Supervisor Mechanical to the Elida kelley [id number] may have shifted HbA1c results compared to historical results. Based on laboratory validation testing conducted at [facility], the Elida platform relative to the Pozo [...] Constance MATHIAS LAB BLOOD ORDERABLES Final Result [facility] [address] [place] [address] * (ABNORMAL) Lipid panel (10/07/2023 9:04 AM CDT) Pathologist [facility] Cholesterol 154 <200 mg/dL [facility] HDL 28(L) > OR = 40 mg/dL [facility] Triglycerides 342(H) <150 mg/dL [facility] Comment: If a non-fasting specimen was collected, consider repeat triglyceride testing on a fasting specimen if clinically indicated. Eduardo et al. J. of Clin. Lipidol. 2015;9:129-169. LDL 85 mg/dL (calc) [facility] Comment: Reference range: <100 Desirable range <100 mg/dL for primary prevention; <70 mg/dL for patients with CHD or diabetic patients with > or = 2 CHD risk factors. LDL-C is now calculated using the Tristan-Chani calculation, which is a validated novel method providing better accuracy than the Friedewald equation in the estimation of LDL-C. Tristan JAMES et al. VAIBHAV. 2013;310(19): 4900-1184 (http://education.MiddleGate.Equiphon/faq/IEG992) Chol/HDL ratio 5.5(H) <5.0 (calc) [facility] Non-HDL, (LDL+VLDL) 126 <130 mg/dL (calc) [...] MATHIAS LAB BLOOD ORDERABLES Final Result [facility] [address] [id number] * (ABNORMAL) Comprehensive metabolic panel (10/07/2023 9:04 AM CDT) Pathologist [facility] Glucose 186(H) 65 - 99 mg/dL [facility] [...] LAB BLOOD ORDERABLES Final Result [facility] [address] [phone] * DIABETES EYE EXAM (08/01/2022 11:51 AM CDT) Historical Provider HEALTH MAINTENANCE Edited Result - Final from Last 3 Months or Most Recently Relevant to Health Maintenance Insurance [employer] Advance Directives For more information, please contact: [phone] * Full Code (Latest Code Status on File) Date Activated Date Inactivated Comments 03/14/2023 9:15 AM 03/16/2023 3:09 PM * Full Code Date Activated Date Inactivated Comments 08/30/2017 4:21 PM 08/31/2017 4:10 PM Care Teams Chemical Manager Relationship Specialty Start Date End Date Constance Arboleda PA [address] [place] [address] PCP - General Internal Medicine 11/17/18 [place] [address] [facility] [address] [place] [address] Consulting Physician Cardiology 08/31/17
--- OUTSIDE RECORDS SUMMARY | 2024-05-23 15:45 | XMS_ITS | Encounter Summary ---
Author Organization [facility] Address [address] [place] [address] Care Team Providers Care Painting Worker Name Role Phone Constance Arboleda Primary Care Provider [phone] Encounter Details Date Type Department Care Team (Late st Contact Info) Description 08/21/2019 Prep for Procedure [facility] [place], [place] [id number] Quang Cho MD [address] [facility] Joe [address] [place] [phone] Social History Tobacco Use Types Packs/Day Years Used Date Smoking Tobacco: Never Smokeless Tobacco: Never Alcohol Use Standard Drinks/Week Comments Yes 0 (1 standard drink = 0.6 oz pur e alcohol) occasional Humiliation, Afraid, Rape, and Kick questionnair e Answer Date Recorded Fear of Current or Ex-Partner Patient declined 0 08/18/2019 Emotionally Abused Patient declined 08/18/2019 Physically Abused Patient declined 08/18/2019 Sexually Abused Patient declined 08/18/2019 Social Connection and Isolation Panel [NHANES] A nswer Date Recorded Frequency of Communication with Friends and Fami ly Not asked 08/18/2019 Frequency of Social Gatherings with Friends and Family Not asked 08/18/2019 Attends Jewish Services Not asked 08/17 Active Member of Clubs or Organizations Not aske d 08/18/2019 Attends Club or Organization Meetings Not asked 08/18/2019 Marital Status Not asked 08/18/2019 Sex and Gender Information Value Date Recorded Sex Assigned at Not on file Legal Sex Male 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 No / Unsure 08/23/2019 7:36 AM CDT documented as of this encounter Plan of Treatment Not on file documented as of this encounter Visit Diagnoses Diagnosis Fistula- Primary Unspecified local infection of skin and subcutaneous tissue documented in this encounter Additional Health Concerns Infection Onset Date Last Indicated Resolved Time COVID-19 Rule Out 08/21/2019 08/21/2019 08/22/2019 4:31 AM CDT COVID-19 Rule Out 09/15/2019 09/15/2019 09/16/2019 11:04 AM CDT documented as of this encounter Care Teams Painting Worker Relationship Specialty Start Date End Date Constance Arboleda PA [address] [place] [address] PCP - General PHYSICIAN PAD EXTRACTION TENDER 08/21/19 documented as of this encounter
--- OUTSIDE RECORDS SUMMARY | 2024-05-23 15:45 | XMS_ITS | Encounter Summary ---
Author Organization [facility] Address [address] [place] [address] Care Team Providers Care Pan Devulcanizer Name Role Phone Constance Arboleda Primary Care Provider [phone] Encounter Details Date Type Department Care Team (Late st Contact Info) Description 09/11/2019 Prep for Procedure [facility] Pre-Admission Testing [facility] [place], [place] [id number] Yoanna Loyd MD [address] [place] [address] [place] [id number] Social History Tobacco Use Types Packs/Day Years Used Date Smoking Tobacco: Never Smokeless Tobacco: Never Alcohol Use Standard Drinks/Week Comments Yes 0 (1 standard drink = 0.6 oz pur e alcohol) occasional 6 beers Humiliation, Afraid, Rape, and Kick questionnair e [...] Friends and Family Not asked 08/18/2019 Attends Buddhist Services Not asked 08/17 Active Member of Clubs or Organizations Not aske d 08/18/2019 Attends Club or Organization Meetings Not asked 08/18/2019 Marital Status Not asked 08/18/2019 Sex and Gender Information Value Date Recorded Sex Assigned at Not on file 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 No / Unsure 09/11/2019 10:29 AM CDT documented as of this encounter Plan of Treatment Not on file documented as of this encounter Results * CORONAVIRUS (COVID 19) [facility] (09/15/2019 9:30 AM CDT) CORONAVIRUS SARS COV 2 PCR (RESP) NOT DETECTED NOT DETECTED 09/16/2019 11:03 AM CDT [email or web address] Comment: A Not Detected (negative) test result for this test means that SARS- CoV-2 RNA was not present in the specimen above the limit of detection. A negative result does not rule out the possibility of COVID-19 and should not be used as the sole basis for treatment or patient management decisions. If COVID-19 is still suspected, based on exposure history together with other clinical findings, re-testing should be considered in consultation with public health authorities. Laboratory test results should always be considered in the context of clinical observations and epidemiological data in making a final diagnosis and patient management decisions. Please review the Fact Sheets and FDA authorized labeling available for health care providers and patients using the following websites: https://www.HOTELbeat.Impliant/home/Covid-19/HCP/QuestIVD/fact- sheet.html https://www.HOTELbeat.Impliant/home/Covid-19/Patients/ QuestIVD/fact-sheet.html This test has been authorized by the FDA under an Emergency Use Authorization (EUA) for use by authorized laboratories. Due to the current public health emergency, [facility] is receiving a high volume of samples from a wide variety of swabs and media for COVID-19 testing. In order to serve patients during this public health crisis, samples from appropriate clinical sources are being tested. Negative test results derived from specimens received in non-commercially manufactured viral collection and transport media, or in media and sample collection kits not yet authorized by FDA for COVID-19 testing should be cautiously evaluated and the patient potentially subjected to extra precautions such as additional clinical monitoring, including collection of an additional specimen. Methodology: Nucleic Acid Amplification Test (NAAT) includes PCR or TMA Additional information about COVID-19 can be found at the [facility] website: www.Morningstar/Covid19. Test performed at [email or web address] [place] [address] [facility] [place] [address] Director: RIGO FLOREZ DO,MPH NASOPHARYNGEAL SWAB / Unknown 09/15/2019 9:30 AM CDT us Yoanna Loyd MD MICROBIOLOGY - GENERAL ORDERABLE S Final Result [email or web address] [id number] [place] [place] [address] documented in this encounter Visit Diagnoses Diagnosis Preop examination- Primary Preoperative examination, unspecified documented in this encounter Additional Health Concerns Infection Onset Date Last Indicated Resolved Time COVID-19 Rule Out 09/15/2019 09/15/2019 09/16/2019 11:04 AM CDT documented as of this encounter Care Teams Pan Devulcanizer Relationship Specialty Start Date End Date Constance Arboleda PA [address] [place] [address] [address] [place] [address] PCP - General PHYSICIAN APARTMENT HOTEL MANAGER 08/21/19 documented as of this encounter
--- OUTSIDE RECORDS SUMMARY | 2024-05-23 15:45 | XMS_ITS | Clinical Summary ---
Author Organization [facility] Address [address] [place] [address] Care Team Providers Care Woodworking Bench Carpenter Name Role Phone Constance Arboleda Primary Care Provider [phone] Allergies Active Allergy Reactions Criticality Noted Date Comments Penicillins Rash Low 08/18/2019 Medications metFORMIN 500 MG tablet Take 2 tablets (1,000 mg total) by mouth 2 (two) times daily with meals. Active fenofibric acid delayed release 135 MG CAPSULE DELAYED RELEASE Take 1 tablet (135 mg total) by mouth daily. Active metoprolol tartrate 25 MG tablet Take 1 tablet (25 mg total) by mouth daily. Active lisinopril 20 MG tablet Take 1 tablet (20 mg total) by mouth daily. Active atorvastatin 20 MG tablet Take 4 tablets (80 mg total) by mouth daily. Active clopidogrel 75 MG tablet Take 1 tablet (75 mg total) by mouth daily. Active esomeprazole 20 MG capsule Take 1 capsule (20 mg total) by mouth every morning before breakfast. Active aspirin EC (ASPIRIN EC) 81 MG tablet Take 1 tablet (81 mg total) by mouth daily. Active Active Problems No known active problems Encounters Date Type Department Care Team Description 03/03/2024 9:02 AM FITNESS INSTRUCTOR Anesthesia Event [facility] [address] Lorin Denis MD 03/03/2024 9:00 AM FITNESS INSTRUCTOR - 03/03/2024 9:30 AM FITNESS INSTRUCTOR Surgery [facility] [address] Yoanna Loyd MD COLONOSCOPY WITH REMOVAL OF CECAL AND SIGMOID COLON POLYPS VIA JUMBO BIOPSY FORCEPS 03/03/2024 8:06 AM FITNESS INSTRUCTOR - 03/03/2024 12:52 PM FITNESS INSTRUCTOR Hospital Encounter [facility] [place] [address] Yoanna Loyd MD Discharge Disposition: Home or Self Care (Routine Discharge) 03/03/2024 Travel from Last 3 Months Family History Medical History Relation Comments Diabetes Father Heart Disease Father stents Hyperlipidemia Father Hypertension Father respiratory asbestos Father COPD Mother Heart Disease Mother mi- stents Hyperlipidemia Mother Relation Status Comments Father Mother Social History Tobacco Use Types Packs/Day Years [...] Friends and Family Not asked 08/18/2019 Attends Congregational Services Not asked 08/17 Active Member of Clubs or Organizations Not aske d 08/18/2019 Attends Club or Organization Meetings Not asked 08/18/2019 Marital Status Not asked 08/18/2019 Sex and Gender Information Value Date Recorded Sex Assigned at Not on file Legal Sex Male 12:12 PM FITNESS INSTRUCTOR Gender Identity Not on file Sexual Orientation Not on file Last Filed Vital Signs Vital Sign Reading Time Taken Comments Blood Pressure 129/88 03/03/2024 12:40 PM FITNESS INSTRUCTOR Pulse 75 03/03/2024 12:40 PM FITNESS INSTRUCTOR Temperature 36.5 C (97.7 F) 03/03/2024 10:22 AM FITNESS INSTRUCTOR Respiratory Rate 27 03/03/2024 12:40 PM FITNESS INSTRUCTOR Oxygen Saturation 96% 03/03/2024 12:40 PM FITNESS INSTRUCTOR Inhaled Oxygen Concentration - - Weight 96.2 kg (212 lb) 02/28/2024 2:25 PM FITNESS INSTRUCTOR Height 162.6 cm (5' 4 ) 02/28/2024 2:25 PM FITNESS INSTRUCTOR Body Mass Index 36.39 02/28/2024 2:25 PM FITNESS INSTRUCTOR Plan of Treatment Health Maintenance Due Date Last Done Comments Annual Physical 1973 Hepatitis C 1988 Hepatitis B Vaccines (1 of 3 - 19+ 3-dose series) 1989 Zoster Vaccines (1 of 2) 2020 COVID-19 Vaccine (2 - 2023-2 5 season) 2023 04/07/2021 Influenza Adult (#1) 2024 DTaP, Tdap and Td Vaccines ( 2 - Td or Tdap) 12/06/2028 12/06/2018 Colorectal Cancer Screening Colonoscopy (10 Years) 03/03/2034 03/03/2024, 08/23/2019, 08/23/2019 Meningococcal B Vaccine Aged Out No l onger eligible based on patient's age to complete this topic Meningococcal Vaccine Aged Out No herrera brendan eligible based on patient's age to complete this topic Pneumococcal Vaccine: Pediatrics (0 to 5 Years) and At-Risk Patients (6 to 64 Years) Aged Out No longer eligible b ased on patient's age to complete this topic RSV Immunizations Under 20 Months Aged Out No longer eligible b ased on patient's age to complete this topic Procedures Procedure Name Priority Date/Time Associated Diagnosis Comments COLONOSCOPY WITH BIOPSY 03/03/2024 9:51 AM FITNESS INSTRUCTOR Hx of polyps PROCEDURE GENERIC 03/03/2024 9:4 2 AM FITNESS INSTRUCTOR POCT GLUCOSE - SMITH DOCKED DEVICE Routine 03/03/2024 8:35 AM FITNESS INSTRUCTOR COLONOSCOPY Routine 03/03/2024 8:22 AM FITNESS INSTRUCTOR PATHOLOGY Routine 03/03/2024 12:00 AM FITNESS INSTRUCTOR COLONOSCOPY Routine 08/23/2019 7:47 AM CDT from Last 3 Months or Most Recently Relevant to Health Maintenance Results * PROCEDURE GENERIC (03/03/2024 9:42 AM FITNESS INSTRUCTOR) us Yoanna Loyd MD [facility] Final Result * (ABNORMAL) POCT glucose (03/03/2024 8:35 AM FITNESS INSTRUCTOR) GLUCOSE POC 162(H) 70 - 99 mg/dL 03/03/2024 8:38 AM FITNESS INSTRUCTOR [facility] 03/03/2024 8:35 AM FITNESS INSTRUCTOR Yoanna Loyd MD POCT ORDERABLES - DEVICE Final R esult [facility] [address] [place] [address], * Pathology (03/03/2024 12:00 AM FITNESS INSTRUCTOR) PATHOLOGY [facility] Department of Laboratory Medicine [address] [place] [address] , extension [phone] Pathology Report Surgical Pathology Report Name: JUANI MISHRA Specimen #: [id number] Age: 9 1970 (Age: 53) Location: [facility] Sex: M Procedure Date: 03/03/2024 Hospital #: [id number] Date Received: 03/03/2024 Date Reported: 03/06/2024 Provider: YOANNA LOYD MD Source: A: Colon, cecum, polyp B: Colon, sigmoid, polyp Clinical History: History of polyps Gross Description: A. Received in formalin, labeled with a patient label and as cecal polyp is a 0.3 cm piece of pink-campbell tissue. The specimen is entirely submitted in cassette A1. B. Received in formalin, labeled with a patient label and as sigmoid polyp is a 0.2 cm piece of campbell tissue. The specimen is entirely submitted in cassette B1. Gross examination (when applicable) was performed at [facility], [address] [place] [address]. This case was interpreted and signed out at [facility], [address] [place] [address]. FINAL DIAGNOSIS: A. Colon polyp, cecum, polypectomy: -Inflammatory polyp B. Colon polyp, sigmoid, polypectomy: -Tubular adenoma Electronically Signed Out PRASHANT REEN MD [facility] TISSUE CECUM STRUCTURE / Unknown 03/03/2024 10:02 AM FITNESS INSTRUCTOR Tissue specimen (specimen) COLON STRUCTURE / Unknown 03/03/2024 10:17 AM FITNESS INSTRUCTOR us Yoanna Loyd MD PATHOLOGY/CYTOLOGY ORDERABLES Fi nal Result [facility] [address] [place] [address], [id number] from Last 3 Months Insurance [facility] Care Teams Woodworking Bench Carpenter Relationship Specialty Start Date End Date Constance Arboleda PA [address] [facility] [address] [place] [address] PCP - General PHYSICIAN BONING ROOM WORKER 08/21/19
--- NOTE | 2024-05-23 17:56 | ED_ITS ---
HPI - Abdominal Pain General Chief Complaint: Abdominal Pain Stated Complaint: abdominal pain Time Seen by Provider: 05/23/24 17:56 Focused HPI: Patient is a 53 y/o male who presents to the ED with c/o abd pain. GENERAL: Well-appearing, well-nourished, and in no acute distress. HEAD: Normocephalic, atraumatic. CHEST: Clear to auscultation. ?No respiratory distress. HEART: Regular rate and rhythm.? NEURO: ?Alert and oriented x3. Patient screened in triage and initial orders placed.? ?Additional care and disposition to be based upon?diagnostic testing and treatment. Related Data Home Medications ?Medication ?Instructions ?Recorded ?Confirmed ?Last Taken ?Type Nexium 20 mg PO DAILY 08/19/20 08/19/20 Unknown History atorvastatin 80 mg tablet 80 mg PO DAILY 08/19/20 08/19/20 Unknown History clopidogrel 75 mg PO DAILY 08/19/20 08/19/20 Unknown History fenofibrate 134 mg PO DAILY 08/19/20 08/19/20 Unknown History lisinopril 20 mg tablet 20 mg PO DAILY 08/19/20 08/19/20 Unknown History metformin 500 mg tablet,extended 500 mg PO DAILY 08/19/20 08/19/20 Unknown History release 24 hr metoprolol succinate 25 mg PO DAILY 08/19/20 08/19/20 Unknown History Allergies Allergy/AdvReac Type Severity Reaction Status Date / Time Penicillins Allergy Unknown Verified 03/13/17 16:59 [facility] Past Medical History Medical History (Updated 08/20/20 @ 16:47 by Jaja Patel, PA-C) Pneumonia Hypercholesterolemia History of hypertension Diabetes Surgical History Surgical History (Updated 08/19/20 @ 15:52 by Baron Henson MD) History of left heart catheterization Social History Social History (Updated 08/19/20 @ 15:52 by Baron Henson MD) Smoking status: Never smoker Alcohol intake: current Substance use: current Gender identity (if verbalized by the patient): Male Spiritual care concerns: No Course Vital Signs Vital signs: Vital Signs Temperature 97.9 F 05/23/24 15:17 Pulse Rate 85 05/23/24 15:17 Respiratory Rate 16 05/23/24 15:17 Blood Pressure 140/94 H 05/23/24 15:17 Pulse Oximetry 98 05/23/24 15:17 Oxygen Delivery Room Air 05/23/24 15:17 Temperature 97.9 F 05/23/24 15:17 Pulse Rate 85 05/23/24 15:17 Respiratory Rate 16 05/23/24 15:17 Blood Pressure 140/94 H 05/23/24 15:17 Pulse Oximetry 98 05/23/24 15:17 Oxygen Delivery Room Air 05/23/24 15:17 Discharge Plan Discharge Instructions: Antibiotic Form Patient Language: Iraqi Prescriptions: No Action atorvastatin 80 mg tablet 80 mg PO DAILY lisinopril 20 mg tablet 20 mg PO DAILY metformin 500 mg tablet extended release 24 hr 500 mg PO DAILY fenofibrate 134 mg PO DAILY Nexium 20 mg PO DAILY clopidogrel 75 mg PO DAILY metoprolol succinate 25 mg PO DAILY dexamethasone 6 mg tablet 6 mg PO DAILY Qty: 7 0RF Follow-up/Referrals: Nkechi,MEY Nolasco [Primary Care Provider] -
--- NOTE | 2024-05-23 20:53 | PC.NURSE ---
Patient called to triage bay for repeat vital signs. No answer @ 2044
--- NOTE | 2024-05-23 21:35 | PC.NURSE ---
Pt called for repeat vital signs with no answer @ [id number]
--- OUTSIDE RECORDS SUMMARY | 2024-05-23 22:24 | XMS_ITS | Clinical Summary ---
Author Organization [facility] Address [address] [place] [address] Care Team Providers Care Hospital Aides And Assistants Teacher Name Role Phone Constance Arboleda Primary Care Provider [phone] Allergies Active Allergy Reactions Criticality Noted Date [...] Department Care Team Description 03/03/2024 9:02 AM REPORTS DEVELOPER Anesthesia Event [facility] [place] [address] Lorin Denis MD 03/03/2024 9:00 AM REPORTS DEVELOPER - 03/03/2024 9:30 AM REPORTS DEVELOPER Surgery [facility] [address] Yoanna Loyd MD COLONOSCOPY WITH REMOVAL OF CECAL AND SIGMOID COLON POLYPS VIA JUMBO BIOPSY FORCEPS 03/03/2024 8:06 AM REPORTS DEVELOPER - 03/03/2024 12:52 PM REPORTS DEVELOPER Hospital Encounter [facility] [place] [address] Yoanna Loyd MD Discharge Disposition: Home or [...] Friends and Family Not asked 08/18/2019 Attends Christian Services Not asked 08/17 Active Member of Clubs or Organizations Not aske d 08/18/2019 Attends Club or Organization Meetings Not asked 08/18/2019 Marital Status Not asked 08/18/2019 Sex and Gender Information Value Date Recorded Sex Assigned at Not on file Legal Sex Male 12:12 PM REPORTS DEVELOPER Gender Identity Not on file Sexual Orientation Not on file Last Filed Vital Signs Vital Sign Reading Time Taken Comments Blood Pressure 129/88 03/03/2024 12:40 PM REPORTS DEVELOPER Pulse 75 03/03/2024 12:40 PM REPORTS DEVELOPER Temperature 36.5 C (97.7 F) 03/03/2024 10:22 AM REPORTS DEVELOPER Respiratory Rate 27 03/03/2024 12:40 PM REPORTS DEVELOPER Oxygen Saturation 96% 03/03/2024 12:40 PM REPORTS DEVELOPER Inhaled Oxygen Concentration - - Weight 96.2 kg (212 lb) 02/28/2024 2:25 PM REPORTS DEVELOPER Height 162.6 cm (5' 4 ) 02/28/2024 2:25 PM REPORTS DEVELOPER Body Mass Index 36.39 02/28/2024 2:25 PM REPORTS DEVELOPER Plan of Treatment Health Maintenance Due Date [...] Comments COLONOSCOPY WITH BIOPSY 03/03/2024 9:51 AM REPORTS DEVELOPER Hx of polyps PROCEDURE GENERIC 03/03/2024 9:4 2 AM REPORTS DEVELOPER POCT GLUCOSE - SMTIH DOCKED DEVICE Routine 03/03/2024 8:35 AM REPORTS DEVELOPER COLONOSCOPY Routine 03/03/2024 8:22 AM REPORTS DEVELOPER PATHOLOGY Routine 03/03/2024 12:00 AM REPORTS DEVELOPER COLONOSCOPY Routine 08/23/2019 7:47 AM CDT from Last 3 Months or Most Recently Relevant to Health Maintenance Results * PROCEDURE GENERIC (03/03/2024 9:42 AM REPORTS DEVELOPER) us Yoanna Loyd MD [facility] Final Result * (ABNORMAL) POCT glucose (03/03/2024 8:35 AM REPORTS DEVELOPER) GLUCOSE POC 162(H) 70 - 99 mg/dL 03/03/2024 8:38 AM REPORTS DEVELOPER [facility] 03/03/2024 8:35 AM REPORTS DEVELOPER Yoanna Loyd MD POCT ORDERABLES - DEVICE Final R esult [facility] [address] [place] [address], * Pathology (03/03/2024 12:00 AM REPORTS DEVELOPER) PATHOLOGY [facility] Department of Laboratory Medicine [address] [place] [address] , extension [phone] Pathology Report Surgical Pathology Report Name: JUANI MISHRA Specimen #: [id number] Age: 9 1970 (Age: 53) Location: [facility] Sex: M Procedure Date: 03/03/2024 Hospital #: [id number] Date Received: 03/03/2024 Date Reported: 03/06/2024 Provider: [...] Gross examination (when applicable) was performed at [facility], [address] [place] [address]. This case was interpreted and signed out at [facility], [address] [place] [address]. FINAL DIAGNOSIS: A. Colon polyp, cecum, polypectomy: -Inflammatory polyp B. Colon polyp, sigmoid, polypectomy: -Tubular adenoma Electronically Signed Out PRASHANT RENE MD [facility] TISSUE CECUM STRUCTURE / Unknown 03/03/2024 10:02 AM REPORTS DEVELOPER Tissue specimen (specimen) COLON STRUCTURE / Unknown 03/03/2024 10:17 AM REPORTS DEVELOPER us Yoanna Loyd MD PATHOLOGY/CYTOLOGY ORDERABLES Fi nal Result [facility] [address] [place] [address], [id number] from Last 3 Months Insurance [facility] Care Teams Hospital Aides And Assistants Teacher Relationship Specialty Start Date End Date Constance Arboleda PA [address] [facility] [address] [place] [address] PCP - General PHYSICIAN BLACKENER 08/21/19
--- OUTSIDE RECORDS SUMMARY | 2024-05-23 22:25 | XMS_ITS | Clinical Summary ---
Author Organization [facility] Address [address] [place] [address] Phone Care Team Providers Care Language Arts Teacher Name Role Phone Constance Arboleda Primary Care Provider [phone]- [phone] Allergies Active Allergy Reactions Criticality Noted Date Comments Penicillin G Hives 05/23/2024 Medications dicyclomine (BENTYL) 20 MG Tablet Take 1 Tablet by mouth every 6 hours. 30 Tablet 05/23/2024 Active ondansetron (ZOFRAN) 4 MG TabletIndicatio ns:Nausea and Vomiting Take 1 Tablet by mouth every 8 hours as needed for Nausea - 1st line. Indications: Nausea and Vomiting 10 Tablet 05/23/2024 Active Encounters Date Type Department Care Team Description 05/23/2024 7:07 PM BIOMETRICS HEAD - [facility] [address] [place] [address] Quoc Espinoza PAC 05/23/2024 Travel from Last 3 Months Social History Tobacco Use Types Packs/Day Years Used Date Smoking Tobacco: Never Assessed Sex and Gender Information Value Date Recorded Sex Assigned at Male 05/23/2024 7:09 PM BIOMETRICS HEAD Legal Sex Male 12:41 AM CDT Gender Identity Male 05/23/2024 7:09 PM BIOMETRICS HEAD Sexual Orientation Not on file Last Filed Vital Signs Vital Sign Reading Time Taken Comments Blood Pressure 138/97 05/23/2024 9:45 PM BIOMETRICS HEAD Pulse 73 05/23/2024 9:45 PM BIOMETRICS HEAD Temperature 36.1 C (97 F) 05/23/2024 6:46 PM BIOMETRICS HEAD Respiratory Rate 18 05/23/2024 6:46 PM BIOMETRICS HEAD Oxygen Saturation 98% 05/23/2024 9:45 PM BIOMETRICS HEAD Inhaled Oxygen Concentration - - Weight 95.3 kg (210 lb) 05/23/2024 6:46 PM BIOMETRICS HEAD Height 165.1 cm (5' 5 ) 05/23/2024 6:46 PM BIOMETRICS HEAD Body Mass Index 34.95 05/23/2024 6:46 PM BIOMETRICS HEAD Plan of Treatment Health Maintenance Due Date Last Done Comments Hepatitis C Virus (HCV) Screening 1970 Hepatitis B Immunization (1 of 3 - 19+ 3-dose series) 1989 Cologuard 2020 Immunochemical Fecal Occult Blood 2020 Pneumococcal Immunization (5 0+ years) (1 of 1 - PCV) 2020 Zoster Immunization (1 of 2) 2020 Influenza Immunization (#1) 2023 SARS-COV-2 Immunization (2 - season) 2023 04/07/2021 Colonoscopy 03/03/2034 03/03/2024, 08/23/2019 Colorectal Cancer Screening 03/03/2034 Respiratory Syncytial Virus (RSV) Immunization (Adult) (1 - 1-dose 75+ series) 2045 03/03/2024, 08/23/2019 TdaP Immunization Completed 12/06/2018 Meningococcal Immunization (ACWY) Aged Out No longer eligible b ased on patient's age to complete this topic Rotavirus Immunization Aged Out No lo nger eligible based on patient's age to complete this topic Procedures * The patient is currently admitted. The information in this section might not be complete until the patient is discharged. Procedure Name Priority Date/Time Associated Diagnosis Comments URINALYSIS REFLEX IF INDICATED BY ABNORMAL RESULTS STAT 05/23/2024 9:[address] ABDOMEN PELVIS W/ CONTRAST Stat with Interpretation 05/23/2024 8:25 PM BIOMETRICS HEAD GOLD TOP TUBE STAT 05/23/2024 6:54 PM BIOMETRICS HEAD BLUE TOP TUBE STAT 05/23/2024 6:54 PM BIOMETRICS HEAD CBC WITH AUTO DIFFERENTIAL STAT 05/23/2024 6:54 PM BIOMETRICS HEAD EXTRA TUBES STAT 05/23/2024 6:54 PM BIOMETRICS HEAD LIPASE STAT 05/23/2024 6:54 PM BIOMETRICS HEAD CMP (COMPREHENSIVE METABOLIC PANEL) STAT 05/23/2024 6:54 PM BIOMETRICS HEAD COMPLETE BLOOD COUNT (CBC) WITH DIFF STAT 05/23/2024 6:54 PM BIOMETRICS HEAD RSV,SARS-COV-2,INF LUENZA A&B BY PCR STAT 05/23/2024 6:54 PM BIOMETRICS HEAD from Last 3 Months Results * (ABNORMAL) Urinalysis w/ Reflex (05/23/2024 9:54 PM BIOMETRICS HEAD) SPECIFIC GRAVITY 1.005 1.003 - 1.030 05/23/2024 10:16 PM BIOMETRICS HEAD [facility] URINE PH 7.0 5.0 - 9.0 05/23/2024 10:16 PM BIOMETRICS HEAD [facility] WBC ESTERASE Negative Negative 05/23/2024 10:16 PM BIOMETRICS HEAD [facility] NITRITE Negative Negative 05/23/2024 10:16 PM BIOMETRICS HEAD [facility] PROTEIN, RANDOM URINE 15 mg/dL(A) Negative 05/23/2024 10:16 PM BIOMETRICS HEAD [facility] URINE GLUCOSE, QUAL Negative Negative 05/23/2024 10:16 PM BIOMETRICS HEAD [facility] URINE KETONES Negative Negative 05/23/2024 10:16 PM BIOMETRICS HEAD [facility] UROBILINOGEN 1 mg/dL(A) Normal mg/dL 05/23/2024 10:16 PM BIOMETRICS HEAD [facility] URINE BLOOD Negative Negative tyra/ul 05/23/2024 10:16 PM BIOMETRICS HEAD [facility] URINALYSIS COLOR Yellow 05/23/19 25 10:16 PM BIOMETRICS HEAD [facility] URINALYSIS CLARITY Clear 05/23/2024 10:16 PM [facility] Urine URINE SPECIMEN / Unknown Non-Phlebotomy Collection / Unknown 05/23/2024 9:54 PM BIOMETRICS HEAD 05/23/2024 10:06 PM BIOMETRICS HEAD us Quoc Fuentesn PAC URINE ORDERABLES Fin al Result [facility] [address] [place] [address] * CT ABDOMEN PELVIS W/ CONTRAST (05/23/2024 8:25 PM BIOMETRICS HEAD) Anatomical Region Laterality Modality Abdomen N/A Computed Tomogra phy 05/23/2024 8:59 PM BIOMETRICS HEAD Impressions 05/23/2024 9:02 PM BIOMETRICS HEAD IMPRESSION: No acute finding. Narrative 05/23/2024 9:02 PM BIOMETRICS HEAD EXAM DESCRIPTION: CT ABDOMEN PELVIS W/ CONTRAST REASON FOR STUDY: Bilateral lower abd pain starting approx 1330 today. TECHNIQUE: CT scan of the abdomen and pelvis performed with intravenous and without oral contrast using helical scanning technique with dynamic intravenous contrast injection. Reconstructed coronal and sagittal MPR images reviewed. All images stored on PACS. Automated exposure control was used as a dose optimization technique for this examination. CONTRAST TYPE/DOSE: 100mL of IOPAMIDOL 76 % IV SOLN injected via Intravenous COMPARISON: 12/18/2011 FINDINGS: LOWER CHEST: No significant pulmonary abnormalities. No effusion. 8 mm nodule of the right lung base is unchanged from 2012 and considered benign. LIVER: Normal size. No identified cystic or solid masses. GALLBLADDER: Unremarkable BILE DUCTS: No intrahepatic or extrahepatic ductal dilatation. SPLEEN: Normal size. No focal lesions. PANCREAS: No identified cystic or solid masses. No significant calcifications. No adjacent inflammation or peripancreatic fluid collections. Pancreatic duct not dilated. ADRENALS: Normal. KIDNEYS/URINARY TRACT: No identified significant cystic or solid masses. No visualized stones. No hydronephrosis or hydroureter. Symmetric enhancement. Urinary bladder is unremarkable. GI: No dilated bowel loops. No obvious wall thickening. Normal appendix. Diverticulosis is seen of the sigmoid colon without evidence of diverticulitis at this time.. PERITONEUM: No ascites or free air. RETROPERITONEUM: No mass or adenopathy. REPRODUCTIVE: No significant abnormality. VASCULATURE: No abdominal aortic aneurysm. MUSCULOSKELETAL: No significant abnormality. OTHER: No other abnormality. THIS IS AN ELECTRONICALLY VERIFIED FINAL REPORT 05/23/2024 8:59 PM - Electronically signed by Bethel PRATER: MOI Report ID: [id number] Reading Location: [place] [address] Procedure Note Bethel Rossi MD - 05/23/2024 EXAM DESCRIPTION: CT ABDOMEN PELVIS W/ CONTRAST REASON FOR STUDY: Bilateral lower abd pain starting approx 1330 today. TECHNIQUE: CT scan of the abdomen and pelvis performed with intravenous and without oral contrast using helical scanning technique with dynamic intravenous contrast injection. Reconstructed coronal and sagittal MPR images reviewed. All images stored on PACS. Automated exposure control was used as a dose optimization technique for this examination. CONTRAST TYPE/DOSE: 100mL of IOPAMIDOL 76 % IV SOLN injected via Intravenous COMPARISON: 12/18/2011 FINDINGS: LOWER CHEST: No significant pulmonary abnormalities. No effusion. 8 mm nodule of the right lung base is unchanged from 2012 and considered benign. LIVER: Normal size. No identified cystic or solid masses. GALLBLADDER: Unremarkable BILE DUCTS: No intrahepatic or extrahepatic ductal dilatation. SPLEEN: Normal size. No focal lesions. PANCREAS: No identified cystic or solid masses. No significant calcifications. No adjacent inflammation or peripancreatic fluid collections. Pancreatic duct not dilated. ADRENALS: Normal. KIDNEYS/URINARY TRACT: No identified significant cystic or solid masses. No visualized stones. No hydronephrosis or hydroureter. Symmetric enhancement. Urinary bladder is unremarkable. GI: No dilated bowel loops. No obvious wall thickening. Normal appendix. Diverticulosis is seen of the sigmoid colon without evidence of diverticulitis at this time.. PERITONEUM: No ascites or free air. RETROPERITONEUM: No mass or adenopathy. REPRODUCTIVE: No significant abnormality. VASCULATURE: No abdominal aortic aneurysm. MUSCULOSKELETAL: No significant abnormality. OTHER: No other abnormality. THIS IS AN ELECTRONICALLY VERIFIED FINAL REPORT 05/23/2024 8:59 PM - Electronically signed by Bethel PRATER: MOI Report ID: [id number] Reading Location: [id number] IMPRESSION: No acute finding. us Quoc Espinoza PAC IMG CT ORDERABLES Fi nal Result * RSV,SARS-COV-2,INFLUENZA A&B BY PCR (05/23/2024 6:54 PM BIOMETRICS HEAD) FLU A Negative Negative, Error 05/23/2024 7:42 PM BIOMETRICS HEAD [facility] FLU B Negative Negative 05/23/2024 7:42 PM BIOMETRICS HEAD [facility] RESP SYNC VIRUS Negative Negative 7:42 PM BIOMETRICS HEAD [facility] SARSCOV2 NOT DETECTED (Reference Range for this test is Not Detected) 05/23/2024 7:42 PM BIOMETRICS HEAD [facility] Comment:This test was perfor med by a Reverse Trade Specialist PCR Method. Swab NASOPHARYNGEAL SWAB / Unknown Non-Phlebotomy Collection / Unknown 05/23/2024 6:54 PM BIOMETRICS HEAD 05/23/2024 7:02 PM BIOMETRICS HEAD Dexter Aviles MD MICROBIOLOGY - GENERAL ORDERABLES Final Result [facility] [address] [place] [address] * Gold Top Tube (05/23/2024 6:54 PM BIOMETRICS HEAD) Blood No Phlebotomy Charged / Unknown 05/23/2024 6:54 PM BIOMETRICS HEAD 05/23/2024 7:03 PM BIOMETRICS HEAD us Dexter Aviles MD CHEMISTRY ORDERABLES F inal Result [facility] [address] [place] [address] * Blue Top Tube (05/23/2024 6:54 PM BIOMETRICS HEAD) Blood No Phlebotomy Charged / Unknown 05/23/2024 6:54 PM BIOMETRICS HEAD 05/23/2024 7:03 PM BIOMETRICS HEAD us Dexter Aviles MD HEMATOLOGY ORDERABLES Final Result [facility] [address] [place] [address] * CBC with Auto Differential (05/23/2024 6:54 PM BIOMETRICS HEAD) WBC 6.14 4.00 - 12.00 10(3)/mcL 05/23/2024 7:06 PM BIOMETRICS HEAD [facility] RBC 4.72 4.40 - 5.80 10(6)/mcL 05/23/2024 7:06 PM [facility] HEMOGLOBIN (HGB) 14.3 13.0 - 16.5 g/dL 05/23/2024 7:06 PM [facility] HEMATOCRIT (HCT) 41.7 38.0 - 50.0 % 05/23/2024 7:06 PM [facility] MCV 88.3 82.0 - 96.0 fL 05/23/2024 7:06 PM [facility] MCH 30.3 26.0 - 32.0 pg 05/23/2024 7:06 PM [facility] MCHC 34.3 31.0 - 36.0 g/dL 05/23/2024 7:06 PM [facility] PLATELET COUNT 206 140 - 440 10(3)/mcL 05/23/2024 7:06 PM [facility] RDW 12.6 11.8 - 15.5 % 05/23/2024 7:06 PM [facility] MPV 11.4 8.0 - 12.6 fL 05/23/2024 7:06 PM [facility] NEUTROPHILS 55.7 40.0 - 68.0 % 05/23/2024 7:06 PM [facility] LYMPHOCYTES 31.4 19.0 - 49.0 % 05/23/2024 7:06 PM [facility] MONOCYTES 7.5 3.0 - 13.0 % 05/23/2024 7:06 PM BIOMETRICS HEAD [facility] EOSINOPHILS 4.7 0.0 - 8.0 % 05/23/2024 7:06 PM BIOMETRICS HEAD [facility] BASOPHILS 0.7 0.0 - 1.0 % 05/23/2024 7:06 PM BIOMETRICS HEAD [facility] ABSOLUTE NEUTROPHILS 3.42 1.40 - 5.30 10(3)/[facility] 05/23/2024 7:06 PM BIOMETRICS HEAD [facility] ABSOLUTE LYMPHOCYTES 1.93 0.90 - 3.30 10(3)/[facility] 05/23/2024 7:06 PM BIOMETRICS HEAD [facility] ABSOLUTE MONOCYTES 0.46 0.10 - 0.90 10(3)/[facility] 05/23/2024 7:06 PM BIOMETRICS HEAD [facility] ABSOLUTE EOSINOPHIL 0.29 0.00 - 0.50 10(3)/[facility] 05/23/2024 7:06 PM [facility] ABSOLUTE BASOPHILS 0.04 0.00 - 0.10 10(3)/[facility] 05/23/2024 7:06 PM [facility] NRBC PER 100 WBC 0 05/23/19 25 7:06 PM BIOMETRICS HEAD [facility] Blood Venipuncture / Unknown 05/23/2024 6:54 PM BIOMETRICS HEAD 05/23/2024 7:02 PM BIOMETRICS HEAD us Dexter Aviles MD HEMATOLOGY ORDERABLES Final Result [facility] [address] [place] [address] * Lipase [id number] (05/23/2024 6:54 PM BIOMETRICS HEAD) LIPASE 11 8 - 78 U/L 05/23/2024 7:26 PM BIOMETRICS HEAD [facility] Blood Venipuncture / Unknown 05/23/2024 6:54 PM BIOMETRICS HEAD 05/23/2024 7:02 PM BIOMETRICS HEAD us eDxter Aviles MD CHEMISTRY ORDERABLES F inal Result [facility] [address] [place] [address] * (ABNORMAL) Comprehensive Metabolic Panel (Cmp) [id number] (05/23/2024 6:54 PM BIOMETRICS HEAD) SODIUM 140 136 - 145 mmol/L 05/23/2024 7:26 PM BIOMETRICS HEAD [facility] POTASSIUM 4.0 3.5 - 5.1 mmol/L 05/23/2024 7:26 PM [facility] CHLORIDE 107 98 - 107 mmol/L 05/23/2024 7:26 PM [facility] CO2, VENOUS 25 22 - 30 mmol/L 05/23/2024 7:26 PM [facility] ANION GAP 12.0 <18.0 mmol/L 05/23/2024 7:26 PM [facility] GLUCOSE 175(H) 70 - 99 mg/dL 05/23/2024 7:26 PM [facility] BUN 11 8 - 26 mg/dL 05/23/2024 7:26 PM [facility] CREATININE, BLOOD 0.84 0.70 - 1.30 mg/dL 05/23/2024 7:26 PM [facility] BUN/CREATININE RATIO 13 12 - 20 ratio 05/23/2024 7:26 PM [facility] TOTAL PROTEIN 7.6 6.0 - 8.0 g/dL 05/23/2024 7:26 PM [facility] ALBUMIN 4.5 3.5 - 5.0 g/dL 05/23/2024 7:26 PM [facility] A/G RATIO 1.5 1.0 - 2.2 05/23/2024 7:26 PM [facility] CALCIUM 9.1 8.7 - 10.5 mg/dL 05/23/2024 7:26 PM BIOMETRICS HEAD [facility] T BILI 0.5 0.2 - 1.2 mg/dL 05/23/2024 7:26 PM BIOMETRICS HEAD [facility] SGOT (AST) 33 6 - 42 U/L 05/23/2024 7:26 PM BIOMETRICS HEAD [facility] SGPT (ALT) 44 6 - 55 U/L 05/23/2024 7:26 PM BIOMETRICS HEAD [facility] ALKALINE PHOSPHATASE 72 40 - 150 U/L 05/23/2024 7:26 PM BIOMETRICS HEAD [facility] GFR, ESTIMATED >60 >=60 05/23/2024 7:26 PM BIOMETRICS HEAD [facility] Comment: Creatinine Clearance is the preferred criteria for selecting drug dose adjustments in renally impaired patients. The GFR is provided as additional pertinent clinical information. GFR is reported in mL/min/1.73 sq m. Calculation based on the Chronic Kidney Disease Epidemiology Collaboration (CKD- EPI) equation refit without adjustment for race. GFR, EST. >60 >=60 025 7:26 PM BIOMETRICS HEAD [facility] GFR, EST. NONAFRICAN >60 >=60 05/23/2024 7:26 PM BIOMETRICS HEAD [facility] Blood Venipuncture / Unknown 05/23/2024 6:54 PM BIOMETRICS HEAD 05/23/2024 7:02 PM BIOMETRICS HEAD Dexter Aviles MD CHEMISTRY ORDERABLES F inal Result [facility] [address] [place] [address] from Last 3 Months Insurance [facility] Care Teams Language Arts Teacher Relationship Specialty Start Date End Date Constance Arboleda, MARBIN [address] [place] [address] PCP - General Physician Remelt Furnace Expediter 05/23/24
--- OUTSIDE RECORDS SUMMARY | 2024-05-23 22:25 | XMS_ITS | Encounter Summary ---
Author Organization [facility] Care Team Providers Care Retail Gift Card Merchandising Name Role Phone Constance Arboleda PAC Primary Care Provider [phone]- [phone] Encounter Details Date Type Department Care Team (Latest Contact Info) Description 05/23/2024 Travel Social History Tobacco Use Types Packs/Day Years Used Date Smoking Tobacco: Never Assessed Sex and Gender Information Value Date Recorded Sex Assigned at Male 05/23/2024 7:09 PM ORACLE SOFTWARE ENGINEER Legal Sex Male 12:41 AM CDT Gender Identity Male 05/23/2024 7:09 PM ORACLE SOFTWARE ENGINEER Sexual Orientation Not on file documented as of this encounter Plan of Treatment Not on file documented as of this encounter Visit Diagnoses Not on filedocumented in this encounter Additional Health Concerns Infection Onset Date Last Indicated Resolved Time COVID - 19 05/23/2024 05/23/2024 05/23/2024 7:42 PM ORACLE SOFTWARE ENGINEER documented as of this encounter Care Teams Retail Gift Card Merchandising Relationship Specialty Start Date End Date Constance Arboleda PAC [address] [place] [address] PCP - General Physician Reinforced Concrete Inspector 05/23/24 documented as of this encounter
--- OUTSIDE RECORDS SUMMARY | 2024-05-23 22:25 | XMS_ITS | Encounter Summary ---
Author Organization [facility] Address [address] [place] [address] Phone Care Team Providers Care Manager Auto Name Role Phone Constance Arboleda PAC Primary Care Provider [phone] Reason for Visit * Reason Comments Abdominal Pain Encounter Details Date Type Department Care Team (Late st Contact Info) Description 05/23/2024 7:07 PM MARKETING PRODUCTION SPECIALIST - Present Emergency [facility] [address] [place] [address] Quoc Espinoza, PAC [address] [place] [address] Social History Tobacco Use Types Packs/Day Years Used Date Smoking Tobacco: Never Assessed Sex and Gender Information Value Date Recorded Sex Assigned at Male 05/23/2024 7:09 PM MARKETING PRODUCTION SPECIALIST Legal Sex Male 12:41 AM CDT Gender Identity Male 05/23/2024 7:09 PM MARKETING PRODUCTION SPECIALIST Sexual Orientation Not on file documented as of this encounter Last Filed Vital Signs Vital Sign Reading Time Taken Comments Blood Pressure 138/97 05/23/2024 9:45 PM MARKETING PRODUCTION SPECIALIST Pulse 73 05/23/2024 9:45 PM MARKETING PRODUCTION SPECIALIST Temperature 36.1 C (97 F) 05/23/2024 6:46 PM MARKETING PRODUCTION SPECIALIST Respiratory Rate 18 05/23/2024 6:46 PM MARKETING PRODUCTION SPECIALIST Oxygen Saturation 98% 05/23/2024 9:45 PM MARKETING PRODUCTION SPECIALIST Inhaled Oxygen Concentration - - Weight 95.3 kg (210 lb) 05/23/2024 6:46 PM MARKETING PRODUCTION SPECIALIST Height 165.1 cm (5' 5 ) 05/23/2024 6:46 PM MARKETING PRODUCTION SPECIALIST Body Mass Index 34.95 05/23/2024 6:46 PM MARKETING PRODUCTION SPECIALIST documented in this encounter ED Notes * Cynthia Stevens RN - 05/23/2024 10:06 PM CST Pt medicated per provider orders. Pt educated on intended effects and side effects of medication and verbalized understanding, able to provide teach back of education. ETING PRODUCTION SPECIALIST * Kyle Quintana RN - 05/23/2024 9:51 PM CST Pt ambulatory to restroom w/ steady gait. ETING PRODUCTION SPECIALIST * Cynthia Stevens RN - 05/23/2024 9:39 PM CST Pt medicated per provider orders. Pt educated on intended effects and side effects of medication and verbalized understanding, able to provide teach back of education. ETING PRODUCTION SPECIALIST * Nikolay Solorzano RN - 05/23/2024 6:44 PM CST Pt to ER triage w/c/o bilateral lower abd pain starting approx 1330 today. Pt denies N/V, injury orHx of problem. Last BM normal at 1400 today. Pt alert and oriented x 4 with respirations that are even and unlabored ETING PRODUCTION SPECIALIST documented in this encounter Plan of Treatment Not on file documented as of this encounter Procedures * The patient is currently admitted. The information in this section might not be complete until the patient is discharged. Procedure Name Priority Date/Time Associated Diagnosis Comments URINALYSIS REFLEX IF INDICATED BY ABNORMAL RESULTS STAT 05/23/2024 9:[address] ABDOMEN PELVIS W/ CONTRAST Stat with Interpretation 05/23/2024 8:25 PM MARKETING PRODUCTION SPECIALIST EXTRA TUBES STAT 05/23/2024 6:54 PM MARKETING PRODUCTION SPECIALIST RSV,SARS-COV-2,INF LUENZA A&B BY PCR STAT 05/23/2024 6:54 PM MARKETING PRODUCTION SPECIALIST GOLD TOP TUBE STAT 05/23/2024 6:54 PM MARKETING PRODUCTION SPECIALIST BLUE TOP TUBE STAT 05/23/2024 6:54 PM MARKETING PRODUCTION SPECIALIST CBC WITH AUTO DIFFERENTIAL STAT 05/23/2024 6:54 PM MARKETING PRODUCTION SPECIALIST LIPASE STAT 05/23/2024 6:54 PM MARKETING PRODUCTION SPECIALIST CMP (COMPREHENSIVE METABOLIC PANEL) STAT 05/23/2024 6:54 PM MARKETING PRODUCTION SPECIALIST COMPLETE BLOOD COUNT (CBC) WITH DIFF STAT 05/23/2024 6:54 PM MARKETING PRODUCTION SPECIALIST documented in this encounter Results * (ABNORMAL) Urinalysis w/ Reflex (05/23/2024 9:54 PM MARKETING PRODUCTION SPECIALIST) Pathologist [facility] SPECIFIC GRAVITY 1.005 1.003 - 1.030 05/23/2024 10:16 PM MARKETING PRODUCTION SPECIALIST [facility] URINE PH 7.0 5.0 - 9.0 05/23/2024 10:16 PM MARKETING PRODUCTION SPECIALIST [facility] WBC ESTERASE Negative Negative 05/23/2024 10:16 PM MARKETING PRODUCTION SPECIALIST [facility] NITRITE Negative Negative 05/23/2024 10:16 PM MARKETING PRODUCTION SPECIALIST [facility] PROTEIN, RANDOM URINE 15 mg/dL(A) Negative 05/23/2024 10:16 PM MARKETING PRODUCTION SPECIALIST [facility] URINE GLUCOSE, QUAL Negative Negative 05/23/2024 10:16 PM MARKETING PRODUCTION SPECIALIST [facility] URINE KETONES Negative Negative 05/23/2024 10:16 PM MARKETING PRODUCTION SPECIALIST [facility] UROBILINOGEN 1 mg/dL(A) Normal mg/dL 05/23/2024 10:16 PM MARKETING PRODUCTION SPECIALIST [facility] URINE BLOOD Negative Negative tyra/ul 05/23/2024 10:16 PM MARKETING PRODUCTION SPECIALIST [facility] URINALYSIS COLOR Yellow 02/11/20 25 10:16 PM MARKETING PRODUCTION SPECIALIST [facility] URINALYSIS CLARITY Clear 05/23/2024 10:16 PM MARKETING PRODUCTION SPECIALIST [facility] Urine URINE SPECIMEN / Unknown Non-Phlebotomy Collection / Unknown 05/23/2024 9:54 PM MARKETING PRODUCTION SPECIALIST 05/23/2024 10:06 PM MARKETING PRODUCTION SPECIALIST us Quoc Fuentesn PAC URINE ORDERABLES Fin al Result [facility] [address] [place] [address] * CT ABDOMEN PELVIS W/ CONTRAST (05/23/2024 8:25 PM MARKETING PRODUCTION SPECIALIST) Anatomical Region Laterality Modality Abdomen N/A Computed Tomogra phy 05/23/2024 8:59 PM MARKETING PRODUCTION SPECIALIST Impressions 05/23/2024 9:02 PM MARKETING PRODUCTION SPECIALIST IMPRESSION: No acute finding. Narrative 05/23/2024 9:02 PM MARKETING PRODUCTION SPECIALIST EXAM DESCRIPTION: CT ABDOMEN PELVIS W/ CONTRAST [...] 8:59 PM - Electronically signed by Bethel Rossi M.D. KH: MOI Report ID: [id number] Reading Location: [id number] Procedure Note Bethel Rossi MD - 05/23/2024 [...] 8:59 PM - Electronically signed by Bethel Rossi M.D. KH: MOI Report ID: [id number] Reading Location: [id number] IMPRESSION: No acute finding. us Quoc Fuentesn PAC IMG CT ORDERABLES Fi nal Result * Gold Top Tube (05/23/2024 6:54 PM MARKETING PRODUCTION SPECIALIST) Blood No Phlebotomy Charged / Unknown 05/23/2024 6:54 PM MARKETING PRODUCTION SPECIALIST 05/23/2024 7:03 PM MARKETING PRODUCTION SPECIALIST Dexter Aviles MD CHEMISTRY ORDERABLES F inal Result Performing Organization Address City/[facility] Co de Phone Number [facility] [address] [place] [address] * Blue Top Tube (05/23/2024 6:54 PM MARKETING PRODUCTION SPECIALIST) Blood No Phlebotomy Charged / Unknown 05/23/2024 6:54 PM MARKETING PRODUCTION SPECIALIST 05/23/2024 7:03 PM MARKETING PRODUCTION SPECIALIST Dexter Aviles MD HEMATOLOGY ORDERABLES Final Result Performing Organization Address [facility] Co de Phone Number [facility] [address] [place] [address] * CBC with Auto Differential (05/23/2024 6:54 PM MARKETING PRODUCTION SPECIALIST) WBC 6.14 4.00 - 12.00 10(3)/mcL 05/23/2024 7:06 PM MARKETING PRODUCTION SPECIALIST [facility] RBC 4.72 4.40 - 5.80 10(6)/mcL 05/23/2024 7:06 PM MARKETING PRODUCTION SPECIALIST [facility] HEMOGLOBIN (HGB) 14.3 13.0 - 16.5 g/dL 05/23/2024 7:06 PM MARKETING PRODUCTION SPECIALIST [facility] HEMATOCRIT (HCT) 41.7 38.0 - 50.0 % 05/23/2024 7:06 PM [facility] MCV 88.3 82.0 - 96.0 fL 05/23/2024 7:06 PM [facility] MCH 30.3 26.0 - 32.0 pg 05/23/2024 7:06 PM [facility] MCHC 34.3 31.0 - 36.0 g/dL 05/23/2024 7:06 PM [facility] PLATELET COUNT 206 140 - 440 10(3)/mcL 05/23/2024 7:06 PM [facility] RDW 12.6 11.8 - 15.5 % 05/23/2024 7:06 PM [facility] MPV 11.4 8.0 - 12.6 fL 05/23/2024 7:06 PM [facility] NEUTROPHILS 55.7 40.0 - 68.0 % 05/23/2024 7:06 PM [facility] LYMPHOCYTES 31.4 19.0 - 49.0 % 05/23/2024 7:06 PM [facility] MONOCYTES 7.5 3.0 - 13.0 % 05/23/2024 7:06 PM [facility] EOSINOPHILS 4.7 0.0 - 8.0 % 05/23/2024 7:06 PM [facility] BASOPHILS 0.7 0.0 - 1.0 % 05/23/2024 7:06 PM [facility] ABSOLUTE NEUTROPHILS 3.42 1.40 - 5.30 10(3)/mcL 05/23/2024 7:06 PM [facility] ABSOLUTE LYMPHOCYTES 1.93 0.90 - 3.30 10(3)/mcL 05/23/2024 7:06 PM [facility] ABSOLUTE MONOCYTES 0.46 0.10 - 0.90 10(3)/mcL 05/23/2024 7:06 PM [facility] ABSOLUTE EOSINOPHIL 0.29 0.00 - 0.50 10(3)/mcL 05/23/2024 7:06 PM [facility] ABSOLUTE BASOPHILS 0.04 0.00 - 0.10 10(3)/mcL 05/23/2024 7:06 PM MARKETING PRODUCTION SPECIALIST [facility] NRBC PER 100 WBC 0 05/23/19 25 7:06 PM MARKETING PRODUCTION SPECIALIST [facility] Blood Venipuncture / Unknown 05/23/2024 6:54 PM MARKETING PRODUCTION SPECIALIST 05/23/2024 7:02 PM MARKETING PRODUCTION SPECIALIST us Dexter Aviles MD HEMATOLOGY ORDERABLES Final Result Performing Organization Address City/[facility]/ZIP Co de Phone Number [facility] [address] [place] [address] * Lipase [id number] (05/23/2024 6:54 PM MARKETING PRODUCTION SPECIALIST) LIPASE 11 8 - 78 U/L 05/23/2024 7:26 PM MARKETING PRODUCTION SPECIALIST [facility] Blood Venipuncture / Unknown 05/23/2024 6:54 PM MARKETING PRODUCTION SPECIALIST 05/23/2024 7:02 PM MARKETING PRODUCTION SPECIALIST us Dexter Aviles MD CHEMISTRY ORDERABLES F inal Result Performing Organization Address City/[facility]/ZIP Co de Phone Number [facility] [address] [place] [address] * (ABNORMAL) Comprehensive Metabolic Panel (Cmp) [id number] (05/23/2024 6:54 PM MARKETING PRODUCTION SPECIALIST) SODIUM 140 136 - 145 mmol/L 05/23/2024 7:26 PM MARKETING PRODUCTION SPECIALIST [facility] POTASSIUM 4.0 3.5 - 5.1 mmol/L 05/23/2024 7:26 PM MARKETING PRODUCTION SPECIALIST [facility] CHLORIDE 107 98 - 107 mmol/L 05/23/2024 7:26 PM MARKETING PRODUCTION SPECIALIST [facility] CO2, VENOUS 25 22 - 30 mmol/L 05/23/2024 7:26 PM MARKETING PRODUCTION SPECIALIST [facility] ANION GAP 12.0 <18.0 mmol/L 05/23/2024 7:26 PM [facility] GLUCOSE 175(H) 70 - 99 mg/dL 05/23/2024 7:26 PM [facility] BUN 11 8 - 26 mg/dL 05/23/2024 7:26 PM [facility] CREATININE, BLOOD 0.84 0.70 - 1.30 mg/dL 05/23/2024 7:26 PM [facility] BUN/CREATININE RATIO 13 12 - 20 ratio 05/23/2024 7:26 PM [facility] TOTAL PROTEIN 7.6 6.0 - 8.0 g/dL 05/23/2024 7:26 PM [facility] ALBUMIN 4.5 3.5 - 5.0 g/dL 05/23/2024 7:26 PM [facility] A/G RATIO 1.5 1.0 - 2.2 05/23/2024 7:26 PM [facility] CALCIUM 9.1 8.7 - 10.5 mg/dL 05/23/2024 7:26 PM [facility] T BILI 0.5 0.2 - 1.2 mg/dL 05/23/2024 7:26 PM [facility] SGOT (AST) 33 6 - 42 U/L 05/23/2024 7:26 PM [facility] SGPT (ALT) 44 6 - 55 U/L 05/23/2024 7:26 PM [facility] ALKALINE PHOSPHATASE 72 40 - 150 U/L 05/23/2024 7:26 PM [facility] GFR, ESTIMATED >60 >=60 05/23/2024 7:26 PM [facility] Comment: Creatinine Clearance is the preferred criteria for selecting drug dose adjustments in renally impaired patients. The GFR is provided as additional pertinent clinical information. GFR is reported in mL/min/1.73 sq m. Calculation based on the Chronic Kidney Disease Epidemiology Collaboration (CKD- EPI) equation refit without adjustment for race. GFR, EST. >60 >=60 025 7:26 PM MARKETING PRODUCTION SPECIALIST [facility] GFR, EST. NONAFRICAN >60 >=60 05/23/2024 7:26 PM MARKETING PRODUCTION SPECIALIST [facility] Blood Venipuncture / Unknown 05/23/2024 6:54 PM MARKETING PRODUCTION SPECIALIST 05/23/2024 7:02 PM MARKETING PRODUCTION SPECIALIST us Dexter Aviles MD CHEMISTRY ORDERABLES F inal Result [facility] [address] [place] [address] * RSV,SARS-COV-2,INFLUENZA A&B BY PCR (05/23/2024 6:54 PM MARKETING PRODUCTION SPECIALIST) FLU A Negative Negative, Error 05/23/2024 7:42 PM MARKETING PRODUCTION SPECIALIST [facility] FLU B Negative Negative 05/23/2024 7:42 PM MARKETING PRODUCTION SPECIALIST [facility] RESP SYNC VIRUS Negative Negative 7:42 PM MARKETING PRODUCTION SPECIALIST [facility] SARSCOV2 NOT DETECTED (Reference Range for this test is Not Detected) 05/23/2024 7:42 PM MARKETING PRODUCTION SPECIALIST [facility] Comment:This test was perfor med by a Reverse Dynamics Ax Developer PCR Method. Swab NASOPHARYNGEAL SWAB / Unknown Non-Phlebotomy Collection / Unknown 05/23/2024 6:54 PM MARKETING PRODUCTION SPECIALIST 05/23/2024 7:02 PM MARKETING PRODUCTION SPECIALIST us Dexter Aviles MD MICROBIOLOGY - GENERAL ORDERABLES Final Result Performing Organization Address City/[facility] Co de Phone Number [facility] [address] [place] [address] documented in this encounter Visit Diagnoses Diagnosis Lower abdominal pain- Primary Abdominal pain, other specified site documented in this encounter Administered Medications Inactive Administered Medications - up to 3 most recent administrations Medication Order MAR Action Action Date Dose Rate Site 0.9 % sodium chloride solution at 999 mL/hr, Intravenous, ONCE, 1 dose, On Wed05/23/24 at 2130 New Bag 05/23/2024 9:38 PM MARKETING PRODUCTION SPECIALIST 999 mL/hr HYDROcodone-acetaminophen (NORCO) 5-325 MG per tablet 1 Tablet 1 Tablet, Oral, ONCE, 1 dose, On Wed05/23/24 at 2230, Maximum dose of acetaminophen is 4000 mg from all sources in 24 hours.If pain not effectively managed, then contact provider to discuss possibly 1) adding scheduled opioid dosing or non-opioid pain treatments, 2) increasing dosage, or 3) changing to LEAD ELECTRICAL CONTROLS ENGINEER. Given 05/23/2024 10:05 PM MARKETING PRODUCTION SPECIALIST 1 Tablet iopamidol (ISOVUE-370) 76 % injection 100 mL 100 mL, Intravenous, ONCE, 1 dose, On Wed05/23/24 at 2030 Given 05/23/2024 8:24 PM MARKETING PRODUCTION SPECIALIST 100 mL documented in this encounter Active and Recently Administered Medications Times are shown in MARKETING PRODUCTION SPECIALIST. Scheduled Medication Order 05/21/2024 05/22/2024 05/23/2024 0.9 % sodium chloride solution (COMPLETED) at 999 mL/hr, Intravenous, ONCE, 1 dose, On Wed05/23/24 at 2130 2138 (New Bag - Prov ider: Cynthia Stevens RN) HYDROcodone-acetaminophen (NORCO) 5-325 MG per tablet 1 Tablet (COMPLETED) 1 Tablet, Oral, ONCE, 1 dose, On Wed05/23/24 at 2230, Maximum dose of acetaminophen is 4000 mg from all sources in 24 hours.If pain not effectively managed, then contact provider to discuss possibly 1) adding scheduled opioid dosing or non-opioid pain treatments, 2) increasing dosage, or 3) changing to LEAD ELECTRICAL CONTROLS ENGINEER. 2204 (Given - Provid er: Cynthia Stevens RN) iopamidol (ISOVUE-370) 76 % injection 100 mL (COMPLETED) 100 mL, Intravenous, ONCE, 1 dose, On Wed05/23/24 at 2029 2023 (Given - Provid er: Kaden Landa, RTR) documented in this encounter Additional Health Concerns Infection Onset Date Last Indicated Resolved Time COVID - 19 05/23/2024 05/23/2024 05/23/2024 7:42 PM MARKETING PRODUCTION SPECIALIST documented as of this encounter Care Teams Manager Auto Relationship Specialty Start Date End Date Constance Arboleda, PAC [address] [facility] [address] [place] [address] PCP - General Physician Marketing Recruiter 05/23/24 documented as of this encounter
--- OUTSIDE RECORDS SUMMARY | 2024-05-23 22:25 | XMS_ITS | Encounter Summary ---
Author Organization [facility] Address [address] [place] [address] Care Team Providers Care Engraver Lettering Name Role Phone Constance Arboleda Primary Care Provider [phone] Encounter Details Date Type Department Care Team (Late st Contact Info) Description 09/11/2019 Prep for Procedure [facility] [place], [place] [id number] Yoanna Loyd MD [address] [place] [address] [place] [address] Social History Tobacco Use Types Packs/Day [...] Friends and Family Not asked 08/18/2019 Attends Worship Services Not asked 08/17 Active Member of Clubs or Organizations Not aske d 08/18/2019 Attends Club or Organization Meetings Not asked 08/18/2019 Marital Status Not asked 08/18/2019 Sex and Gender Information Value Date Recorded Sex Assigned at Not on file Legal Sex Male 12:12 PM HYDROSTATIC TUBING TESTER Gender Identity Not on file Sexual Orientation [...] DETECTED NOT DETECTED 09/16/2019 11:03 AM CDT [facility] Comment: A Not Detected (negative) test result [...] providers and patients using the following websites: https://www.[employer]oomin.com.Wild Pockets/home/Covid-19/HCP/[facility]/fact- sheet.html https://www.[employer].com.Wild P[employer]/home/Covid-19/Patients/ [facility]/fact-sheet.html This test has been authorized by the FDA under an Emergency Use Authorization (EUA) for use by authorized laboratories. Due to the current public health emergency, [facility] is receiving a high volume of samples [...] about COVID-19 can be found at the [facility] website: www.Green Clean/Covid19. Test performed at [facility] [address] [place] [address] Director: RIGO FLOREZ DO,MPH NASOPHARYNGEAL SWAB / Unknown 09/15/2019 9:30 AM CDT us Yoanna Loyd MD MICROBIOLOGY - GENERAL ORDERABLE S Final Result [facility] [address] [place] [address] documented in this encounter Visit Diagnoses Diagnosis Preop examination- Primary Preoperative examination, unspecified documented in this encounter Additional Health Concerns Infection Onset Date Last Indicated Resolved Time COVID-19 Rule Out 09/15/2019 09/15/2019 09/16/2019 11:04 AM CDT documented as of this encounter Care Teams Engraver Lettering Relationship Specialty Start Date End Date Constance Arboleda PA [address] [place] [address] [address] [place] [address] PCP - General PHYSICIAN SEWER CONNECTOR 08/21/19 documented as of this encounter
--- OUTSIDE RECORDS SUMMARY | 2024-05-23 22:25 | XMS_ITS | Encounter Summary ---
Author Organization [facility] Address [address] [place] [id number] Care Team Providers Care Fitting Room Associate Name Role Phone Constance Arboleda Primary Care Provider [phone] Encounter Details Date Type Department Care Team (Late st Contact Info) Description 08/21/2019 Prep for Procedure [facility] [place], [place] [id number] Quang Cho MD [address] [facility] Joe [address] [place] [id number] Social History Tobacco Use Types Packs/Day Years [...] Friends and Family Not asked 08/18/2019 Attends Yarsani Services Not asked 08/17 Active Member of Clubs or Organizations Not aske d 08/18/2019 Attends Club or Organization Meetings Not asked 08/18/2019 Marital Status Not asked 08/18/2019 Sex and Gender Information Value Date Recorded Sex Assigned at Not on file Legal Sex Male 12:12 PM RUNNER OUT Gender Identity Not on file Sexual Orientation [...] documented as of this encounter Care Teams Fitting Room Associate Relationship Specialty Start Date End Date Constance Arboleda PA [address] [facility] [address] [place] [address] PCP - General PHYSICIAN SPOT MACHINE OPERATOR 08/21/19 documented as of this encounter
--- OUTSIDE RECORDS SUMMARY | 2024-05-23 22:25 | XMS_ITS | Referral Summary ---
Author Organization [facility] [address] [facility] lt Address [address] [place] [address] Care Team Providers Care Child Day Care Provider Name Role Phone Joshua De MD Unavailable Constance Arboleda Primary Care Provider [phone]- [phone] Encounters Date Type Department Care Team Description 03/03/2024 Telephone [facility] Medicine [address] [place] [address] [place] [phone] Constance Arboleda PA High bp during colonosocpy -- 03/03/2024 Orders Only [address] [place] [phone] Provider, MD Priscilla from Last 3 [...] tablet TAKE 1 TABLET(14 MG) BY MOUTH INDUSTRIAL SERVICER BEFORE BREAKFAST 90 tablet 1 10/12/19 24 [...] encouraged him to get in with his independent insurance adjuster because he is still having occasional chest twinges that did not change at all with the addition of the Lexapro. He voices understanding will consider Assessment & Plan (06/18/2021 5:34 PM GEOPHYSICAL SUPPORT SPECIALIST): This is a significant, separately identifiable problem [...] called by provider to Dr. Henson at [facility]. Chest tightness 08/19/2020 Assessment & Plan (08/19/2020 2:14 PM CDT): Patient advised to report to er now for further evaluation and treatment, will contact EMS for transport. Report called by provider to Dr. Henson at [facility]. Annual physical exam 04/22/2020 Assessment & [...] screenings. Assessment & Plan (06/16/2021 11:06 AM GEOPHYSICAL SUPPORT SPECIALIST): Encouraged healthy lifestyle, good nutrition and exercise. Encouraged Calcium and Vitamin D and weight bearing exercise for bone health. Reviewed immunizations Reviewed age appropirate screenings. Assessment & Plan (05/05/2020 9:34 PM GEOPHYSICAL SUPPORT SPECIALIST): Encouraged healthy lifestyle, good nutrition and exercise. Encouraged Calcium and Vitamin D and weight bearing exercise for bone health. Reviewed immunizations Reviewed age appropirate screenings. Neuropathy due to type 2 diabetes mellitus (CMS/ HCC) 11/19/2019 Assessment & Plan (07/26/2023 1:16 PM CDT): Continue tight control of diabetes. Currently managing without additional medications Assessment & Plan (05/05/2020 9:32 PM GEOPHYSICAL SUPPORT SPECIALIST): Stressed importance of continued A1c control to minimize the terminal clerk effects of diabetes. Bring accuchecks to office [...] Overview (11/19/2019): Refer to Ortho -- prefers [place] location. BMI 35.0-35.9,adult 12/06/2018 Assessment & Plan [...] artery disease of n ative artery of [place] heart with stable angina pectoris 08/31/2017 Overview [...] Plavix Assessment & Plan (06/16/2021 11:06 AM GEOPHYSICAL SUPPORT SPECIALIST): History Cardiac catheterization in 2014. Negative stress test in 2020. No stents have been placed. Per patient he is on Plavix for prevention. Patient is on beta-rickey statin. Encouraged him to contact his independent insurance adjuster for these little twinges that he is [...] scheduling. Assessment & Plan (04/22/2020 2:18 PM GEOPHYSICAL SUPPORT SPECIALIST): History Cardiac Cath in 2014. No significant [...] of continued A1c control to minimize the terminal clerk effects of diabetes. Bring accuchecks to office [...] to adjust medications in conjunction with his independent insurance adjuster Assessment & Plan (01/11/2023 10:40 PM CDT): Stressed importance of continued A1c control to minimize the long-term effects of diabetes. Bring accuchecks to office [...] of continued A1c control to minimize the terminal clerk effects of diabetes. Bring accuchecks to office when instructed to do so. Check A1c about every 3-6 months. Take medication as prescribed. Get annual eye exam. Encouraged NAN/Statin if able to tolerate. Encouraged weight control and encouraged diabetic diet and exercise. Significant improvement with the Rybelsus 14. A1c is at goal Assessment & Plan (04/20/2022 9:59 AM GEOPHYSICAL SUPPORT SPECIALIST): Stressed importance of continued A1c control to minimize the long-term effects of diabetes. Bring accuchecks to office [...] of continued A1c control to minimize the long-term effects of diabetes. Bring accuchecks to office [...] dosing. Assessment & Plan (06/16/2021 11:07 AM GEOPHYSICAL SUPPORT SPECIALIST): Bp is stable/in acceptable range for any co-morbidities. Encouraged to limit sodium intake and exercise for weight control. Continue lisinopril and metoprolol. Stressed importance of continued A1c control to minimize the long-term effects of diabetes. Bring accuchecks to office [...] of continued A1c control to minimize the long-term effects of diabetes. Bring accuchecks to office when instructed to do so. Check A1c about every 3-6 months. Take medication as prescribed. Get annual eye exam. Encouraged NAN/Statin if able to tolerate. Encouraged weight control and encouraged diabetic diet and exercise. Continue metformin. Currently taking 500mg bid. Await labs to determine control Assessment & Plan (05/05/2020 9:37 PM GEOPHYSICAL SUPPORT SPECIALIST): Bp is stable/in acceptable range for any co-morbidities. Encouraged to limit sodium intake and exercise for weight control. Monitor closely at home and if readings remains above 140/90 he is to call to adjust meds. Stressed importance of continued A1c control to minimize the terminal clerk effects of diabetes. Bring accuchecks to office [...] metoprolol Assessment & Plan (04/10/2019 9:52 AM GEOPHYSICAL SUPPORT SPECIALIST): Stressed importance of continued A1c control to minimize the long-term effects of diabetes. Bring accuchecks to office [...] of continued A1c control to minimize the long-term effects of diabetes. Bring accuchecks to office [...] elevated, will start GLP or SGLT. 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 Bp [...] PPI Assessment & Plan (05/05/2020 9:33 PM GEOPHYSICAL SUPPORT SPECIALIST): Continue PPI Assessment & Plan (12/06/2018 10:37 [...] Vascepa Assessment & Plan (04/20/2022 9:59 AM GEOPHYSICAL SUPPORT SPECIALIST): Stressed importance of continued A1c control to minimize the long-term effects of diabetes. Bring accuchecks to office [...] mg Assessment & Plan (06/16/2021 11:06 AM GEOPHYSICAL SUPPORT SPECIALIST): Encouraged patient to follow fat/low chol diet [...] statin Assessment & Plan (05/05/2020 9:33 PM GEOPHYSICAL SUPPORT SPECIALIST): Encouraged patient to follow fat/low chol diet [...] of continued A1c control to minimize the terminal clerk effects of diabetes. Bring accuchecks to office [...] 07/21/2022 Assessment & Plan (04/20/2022 10:00 AM GEOPHYSICAL SUPPORT SPECIALIST): Discussed the patient's BMI. The BMI is [...] provided. Assessment & Plan (06/16/2021 9:46 AM GEOPHYSICAL SUPPORT SPECIALIST): Obesity is unchanged. Discussed the patient's BMI. The BMI is above average. BMI management plan is completed. BMI Follow-up includes: nutrition counseling, exercise counseling and education provided. BMI 35.0-35.9,adult 06/16/2021 07/22/19 23 Assessment & Plan (04/20/2022 10:01 AM GEOPHYSICAL SUPPORT SPECIALIST): Discussed the patient's BMI. The BMI is [...] provided. Assessment & Plan (06/16/2021 9:46 AM GEOPHYSICAL SUPPORT SPECIALIST): Obesity is unchanged. Discussed the patient's BMI. The BMI is above average. BMI management plan is completed. BMI Follow-up includes: nutrition counseling, exercise counseling and education provided. Prostate cancer screening 06/16/2021 Assessment & Plan (06/16/2021 11:07 AM GEOPHYSICAL SUPPORT SPECIALIST): Check PSA Myalgia 04/21/2021 06/16/2021 Assessment & Plan (04/21/2021 9:11 AM GEOPHYSICAL SUPPORT SPECIALIST): Patient to presume positive COVID/FLU until results are available and plan to self isolate for up to 10 days from the onset of sxs. Check COVID/FLU test thru [facility] collection site in [place]. If positive COVID, complete 10 day quarantine [...] water often. If needed, use a hand pediatric orthodontist that contains at least 60% alcohol. Clean [...] called by provider to Dr. Henson at [facility]. Fever 08/19/2020 07/21/2022 Assessment & Plan (08/19/2020 2:14 PM CDT): Patient advised to report to er now for further evaluation and treatment, will contact EMS for transport. Report called by provider to Dr. Henson at [facility]. Cough 08/13/2020 06/16/2021 Assessment & Plan (08/13/2020 3:43 PM CDT): Will send patient to [place] for Covid-19 testing. The patient was advised [...] 3:43 PM CDT): Will send patient to [place] for Covid-19 testing. The patient was advised to quarantine at least 10 days from symptom onset, but this determination will depend on result of testing. They were advised to contact us in the next 72h if they have not heard results of testing. They were advised to report to the ER if worsening. BMI 34.0-34.9,adult 04/22/2020 11/12/19 Assessment & Plan (04/22/2020 8:48 AM GEOPHYSICAL SUPPORT SPECIALIST): Obesity is unchanged. Discussed the patient's BMI. The BMI is above average. BMI management plan is completed. BMI Follow-up includes: nutrition counseling, exercise counseling and education provided. Dysuria 04/22/2020 11/11/2020 Assessment & Plan (05/05/2020 9:34 PM GEOPHYSICAL SUPPORT SPECIALIST): This is a significant, separately identifiable problem [...] provided. Assessment & Plan (04/10/2019 9:54 AM GEOPHYSICAL SUPPORT SPECIALIST): Obesity is unchanged. Discussed the patient's BMI. The BMI is above average. BMI management plan is completed. BMI Follow-up includes: nutrition counseling, exercise counseling and education provided. Influenza vaccine refused 04/10/2019 Assessment & Plan (04/20/2022 10:00 AM GEOPHYSICAL SUPPORT SPECIALIST): Encouraged vaccine. Reviewed risks/ benefits. Patient refuses and accepts risks. Assessment & Plan (05/05/2020 9:34 PM GEOPHYSICAL SUPPORT SPECIALIST): Encouraged vaccine. Reviewed risks/ benefits. Patient refuses and accepts risks. Assessment & Plan (04/10/2019 10:00 AM GEOPHYSICAL SUPPORT SPECIALIST): Encouraged vaccine. Reviewed risks/ benefits. Patient refuses and accepts risks. Bleeding from varicose vein 01/07/2019 04/25/2019 Assessment & Plan (04/10/2019 9:52 AM GEOPHYSICAL SUPPORT SPECIALIST): Suspect his perineal bleeding is a varicosity-- [...] 12/06/20182020 Assessment & Plan (05/05/2020 9:33 PM GEOPHYSICAL SUPPORT SPECIALIST): Obesity is unchanged. Discussed the patient's BMI. [...] provided. Assessment & Plan (04/10/2019 9:54 AM GEOPHYSICAL SUPPORT SPECIALIST): Obesity is unchanged. Discussed the patient's BMI. [...] 07/21/2022 Assessment & Plan (06/16/2021 11:06 AM GEOPHYSICAL SUPPORT SPECIALIST): Probably multifactorial. Check labs and followup to re-evaluate Assessment & Plan (11/11/2020 11:07 AM CDT): Probably multifactorial. Check labs and followup to re-evaluate Assessment & Plan (05/05/2020 9:34 PM GEOPHYSICAL SUPPORT SPECIALIST): Probably multifactorial. Check labs and followup to re-evaluate Assessment & Plan (04/10/2019 9:55 AM GEOPHYSICAL SUPPORT SPECIALIST): Obesity is unchanged. Discussed the patient's BMI. The BMI is above average. BMI management plan is completed. BMI Follow-up includes: nutrition counseling, exercise counseling and education provided. 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 Not on file Not on file Not on file Last Filed Vital Signs Vital Sign Reading Time Taken Comments Blood Pressure 158/100 07/26/2023 10:37 AM CDT took BP in both arms same reading 158/100 Pulse 80 07/26/2023 10:37 AM CDT Temperature 36.7 C (98.1 F) 07/26/2023 10:37 AM CDT Respiratory Rate 15 03/19/2023 9:08 AM GEOPHYSICAL SUPPORT SPECIALIST Oxygen Saturation 97% 07/26/2023 10: 37 AM CDT Inhaled Oxygen Concentration - - Weight 96.4 kg (212 lb 9.6 oz) 07/26/2023 10:37 AM CDT Height 165.1 cm (5' 5 ) 07/26/2023 10:3 7 AM CDT Body Mass Index 35.38 07/26/2023 10:37 AM CDT Plan of Treatment Not on file Procedures Procedure Name Priority Date/Time Associated Diagnosis Comments HM COLONOSCOPY Routine 03/03/2024 1:35 PM GEOPHYSICAL SUPPORT SPECIALIST COMPREHENSIVE METABOLIC PANEL Routine 10/07/2023 9:04 AM [...] Results * (ABNORMAL) COLONOSCOPY (03/03/2024 1:35 PM GEOPHYSICAL SUPPORT SPECIALIST) Scribed Colonoscopy Abnormal Historical Provider HEALTH MAINTENANCE Edited Result - Final * PSA screen (10/07/2023 9:04 AM CDT) PSA 0.47 < OR = 4.00 ng/mL [facility] Comment: The total PSA value from [...] LAB BLOOD ORDERABLES Final Result [facility] [address] [address] * (ABNORMAL) Albumin Creatinine Ratio, Urine (10/07/2023 9:04 AM CDT) Creatinine, ur 406(H) 20 - 320 mg/dL [facility] Microalbumin, ur 6.2 See Note: mg/dL [facility] Comment: Reference Range: Reference Range Not established Microalbumin/creat ratio 15 <30 mg/g creat [facility] Comment: The ADA defines abnormalities in [...] AM CDT 10/07/2023 9:07 AM CDT Narrative [facility] - 10/08/2023 5:23 PM CDT FASTING:YES FASTING: YES Constance MATHIAS LAB URINE ORDERABLES Final Result [facility] [address] [place] [address] * (ABNORMAL) Hemoglobin A1c (10/07/2023 9:04 AM CDT) Hgb A1C 8.8(H) <5.7 % of total Hgb [facility] Comment: For someone without known diabetes, [...] change in test platforms from the [employer] Specialist to the Elida kelley [id number] may have shifted HbA1c results compared to historical results. Based on laboratory validation testing conducted at [place], the Elida platform relative to the [employer] [...] LAB BLOOD ORDERABLES Final Result [facility] [address] [place] [address] * (ABNORMAL) Lipid panel (10/07/2023 9:04 AM [...] LDL-C. Tristan JAMES et al. VAIBHAV. 2013;310(19): 1306-1501 (http://education.Lumenergi.Findery/faq/OTM099) Chol/HDL ratio 5.5(H) <5.0 (calc) [facility] [...] MATHIAS LAB BLOOD ORDERABLES Final Result [facility] [address] [address] * (ABNORMAL) Comprehensive metabolic panel (10/07/2023 9:04 [...] LAB BLOOD ORDERABLES Final Result [facility] [address] [address] * DIABETES EYE EXAM (08/01/2022 11:51 AM CDT) Historical Provider HEALTH MAINTENANCE Edited Result - Final from Last 3 Months or Most Recently Relevant to Health Maintenance Insurance [employer] Advance Directives For more information, please contact: [phone] * Full Code (Latest Code Status on File) Date Activated Date Inactivated Comments 03/14/2023 9:15 AM 03/16/2023 3:09 PM * Full Code Date Activated Date Inactivated Comments 08/30/2017 4:21 PM 08/31/2017 4:10 PM Care Teams Child Day Care Provider Relationship Specialty Start Date End Date Constance Arboleda PA [address] [place] [address] PCP - General Internal Medicine 11/17/18 [place] [address] [facility] [address] [place] [address] Consulting Physician Cardiology 08/31/17
--- OUTSIDE RECORDS SUMMARY | 2024-05-23 22:25 | XMS_ITS | Clinical Summary ---
Author Organization [facility] [address] [facility] lt Address [address] [place] [address] Care Team Providers Care Game Trapper Name Role Phone Joshua De MD Unavailable [phone] Constance Arboleda Primary Care Provider [phone] Allergies Active Allergy Reactions Criticality Noted Date [...] tablet TAKE 1 TABLET(14 MG) BY MOUTH FASHION STYLIST BEFORE BREAKFAST 90 tablet 1 10/12/19 24 [...] encouraged him to get in with his security officer because he is still having occasional chest twinges that did not change at all with the addition of the Lexapro. He voices understanding will consider Assessment & Plan (06/18/2021 5:34 PM COMPUTER AIDED DESIGN DESIGNER): This is a significant, separately identifiable problem [...] called by provider to Dr. Henson at [facility]. Chest tightness 08/19/2020 Assessment & Plan (08/19/2020 2:14 PM CDT): Patient advised to report to er now for further evaluation and treatment, will contact EMS for transport. Report called by provider to Dr. Henson at [facility]. Annual physical exam 04/22/2020 Assessment & [...] screenings. Assessment & Plan (06/16/2021 11:06 AM COMPUTER AIDED DESIGN DESIGNER): Encouraged healthy lifestyle, good nutrition and exercise. Encouraged Calcium and Vitamin D and weight bearing exercise for bone health. Reviewed immunizations Reviewed age appropirate screenings. Assessment & Plan (05/05/2020 9:34 PM COMPUTER AIDED DESIGN DESIGNER): Encouraged healthy lifestyle, good nutrition and exercise. Encouraged Calcium and Vitamin D and weight bearing exercise for bone health. Reviewed immunizations Reviewed age appropirate screenings. Neuropathy due to type 2 diabetes mellitus (CMS/ HCC) 11/19/2019 Assessment & Plan (07/26/2023 1:16 PM CDT): Continue tight control of diabetes. 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 Bring accuchecks to office [...] 11/19/2019 Overview (11/19/2019): Refer to Ortho -- [facility] location. 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 Negative stress test in 2020. No stents have been placed. Per patient he is on Plavix for prevention. Patient is on beta-rickey statin. Encouraged him to contact his security officer for these little twinges that he is [...] scheduling. Assessment & Plan (04/22/2020 2:18 PM COMPUTER AIDED DESIGN DESIGNER): History Cardiac Cath in 2014. No significant [...] of continued A1c control to minimize the nursing home effects of diabetes. 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 Bring accuchecks to office [...] of continued A1c control to minimize the nursing home effects of diabetes. Bring accuchecks to office when instructed to do so. Check A1c about every 3-6 months. Take medication as prescribed. Get annual eye exam. Encouraged NAN/Statin if able to tolerate. Encouraged weight control and encouraged diabetic diet and exercise. Significant improvement with the Rybelsus 14. 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 Bring accuchecks to office [...] dosing. Assessment & Plan (06/16/2021 11:07 AM COMPUTER AIDED DESIGN DESIGNER): Bp is stable/in acceptable range for any co-morbidities. Encouraged to limit sodium intake and exercise for weight control. Continue lisinopril and metoprolol. 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 Bring accuchecks to office [...] of continued A1c control to minimize the nursing home effects of diabetes. Bring accuchecks to office when instructed to do so. Check A1c about every 3-6 months. Take medication as prescribed. Get annual eye exam. Encouraged NAN/Statin if able to tolerate. Encouraged weight control and encouraged diabetic diet and exercise. Continue metformin. Currently taking 500mg bid. Await labs to determine control Assessment & Plan (05/05/2020 9:37 PM COMPUTER AIDED DESIGN DESIGNER): Bp is stable/in acceptable range for any co-morbidities. Encouraged to limit sodium intake and exercise for weight control. Monitor closely at home and if readings remains above 140/90 he is to call to adjust meds. Stressed importance of continued A1c control to minimize the nursing home effects of diabetes. 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 Bring accuchecks to office [...] of continued A1c control to minimize the nursing home effects of diabetes. Bring accuchecks to office [...] elevated, will start GLP or SGLT. Offered hollow core door frame assembler and he declines at this point. Bp [...] PPI Assessment & Plan (05/05/2020 9:33 PM COMPUTER AIDED DESIGN DESIGNER): Continue PPI Assessment & Plan (12/06/2018 10:37 [...] Vascepa Assessment & Plan (04/20/2022 9:59 AM COMPUTER AIDED DESIGN DESIGNER): Stressed importance of continued A1c control to minimize the nursing home effects of diabetes. Bring accuchecks to office [...] mg Assessment & Plan (06/16/2021 11:06 AM COMPUTER AIDED DESIGN DESIGNER): Encouraged patient to follow fat/low chol diet [...] statin Assessment & Plan (05/05/2020 9:33 PM COMPUTER AIDED DESIGN DESIGNER): Encouraged patient to follow fat/low chol diet [...] of continued A1c control to minimize the nursing home effects of diabetes. Bring accuchecks to office [...] 07/21/2022 Assessment & Plan (04/20/2022 10:00 AM COMPUTER AIDED DESIGN DESIGNER): Discussed the patient's BMI. The BMI is [...] provided. Assessment & Plan (06/16/2021 9:46 AM COMPUTER AIDED DESIGN DESIGNER): Obesity is unchanged. Discussed the patient's BMI. The BMI is above average. BMI management plan is completed. BMI Follow-up includes: nutrition counseling, exercise counseling and education provided. BMI 35.0-35.9,adult 06/16/2021 07/22/19 Assessment & Plan (04/20/2022 10:01 AM COMPUTER AIDED DESIGN DESIGNER): Discussed the patient's BMI. The BMI is [...] provided. Assessment & Plan (06/16/2021 9:46 AM COMPUTER AIDED DESIGN DESIGNER): Obesity is unchanged. Discussed the patient's BMI. The BMI is above average. BMI management plan is completed. BMI Follow-up includes: nutrition counseling, exercise counseling and education provided. Prostate cancer screening 06/16/2021 Assessment & Plan (06/16/2021 11:07 AM COMPUTER AIDED DESIGN DESIGNER): Check PSA Myalgia 04/21/2021 06/16/2021 Assessment & Plan (04/21/2021 9:11 AM COMPUTER AIDED DESIGN DESIGNER): Patient to presume positive COVID/FLU until results are available and plan to self isolate for up to 10 days from the onset of sxs. Check COVID/FLU test thru [facility] collection site in [place]. If positive COVID, complete 10 day quarantine [...] water often. If needed, use a hand mail handlers supervisor that contains at least 60% alcohol. Clean [...] called by provider to Dr. Henson at [facility]. Fever 08/19/2020 07/21/2022 Assessment & Plan (08/19/2020 2:14 PM CDT): Patient advised to report to er now for further evaluation and treatment, will contact EMS for transport. Report called by provider to Dr. Henson at [facility]. Cough 08/13/2020 06/16/2021 Assessment & Plan (08/13/2020 3:43 PM CDT): Will send patient to [place] for Covid-19 testing. The patient was advised [...] 3:43 PM CDT): Will send patient to [place] for Covid-19 testing. The patient was advised [...] 21 Assessment & Plan (04/22/2020 8:48 AM COMPUTER AIDED DESIGN DESIGNER): Obesity is unchanged. Discussed the patient's BMI. The BMI is above average. BMI management plan is completed. BMI Follow-up includes: nutrition counseling, exercise counseling and education provided. Dysuria 04/22/2020 11/11/2020 Assessment & Plan (05/05/2020 9:34 PM COMPUTER AIDED DESIGN DESIGNER): This is a significant, separately identifiable problem [...] provided. Assessment & Plan (04/10/2019 9:54 AM COMPUTER AIDED DESIGN DESIGNER): Obesity is unchanged. Discussed the patient's BMI. The BMI is above average. BMI management plan is completed. BMI Follow-up includes: nutrition counseling, exercise counseling and education provided. Influenza vaccine refused 04/10/2019 Assessment & Plan (04/20/2022 10:00 AM COMPUTER AIDED DESIGN DESIGNER): Encouraged vaccine. Reviewed risks/ benefits. Patient refuses and accepts risks. Assessment & Plan (05/05/2020 9:34 PM COMPUTER AIDED DESIGN DESIGNER): Encouraged vaccine. Reviewed risks/ benefits. Patient refuses and accepts risks. Assessment & Plan (04/10/2019 10:00 AM COMPUTER AIDED DESIGN DESIGNER): Encouraged vaccine. Reviewed risks/ benefits. Patient refuses and accepts risks. Bleeding from varicose vein 01/07/2019 04/25/2019 Assessment & Plan (04/10/2019 9:52 AM COMPUTER AIDED DESIGN DESIGNER): Suspect his perineal bleeding is a varicosity-- [...] 12/06/20182020 Assessment & Plan (05/05/2020 9:33 PM COMPUTER AIDED DESIGN DESIGNER): Obesity is unchanged. Discussed the patient's BMI. [...] provided. Assessment & Plan (04/10/2019 9:54 AM COMPUTER AIDED DESIGN DESIGNER): Obesity is unchanged. Discussed the patient's BMI. [...] wit h circulatory disorder causing erectile dysfunction ([facility]) 12/06/2018 07/21/2022 Assessment & Plan (12/06/2018 10:36 [...] 07/21/2022 Assessment & Plan (06/16/2021 11:06 AM COMPUTER AIDED DESIGN DESIGNER): Probably multifactorial. Check labs and followup to re-evaluate Assessment & Plan (11/11/2020 11:07 AM CDT): Probably multifactorial. Check labs and followup to re-evaluate Assessment & Plan (05/05/2020 9:34 PM COMPUTER AIDED DESIGN DESIGNER): Probably multifactorial. Check labs and followup to re-evaluate Assessment & Plan (04/10/2019 9:55 AM COMPUTER AIDED DESIGN DESIGNER): Obesity is unchanged. Discussed the patient's BMI. The BMI is above average. BMI management plan is completed. BMI Follow-up includes: nutrition counseling, exercise counseling and education provided. Prostate cancer screening 12/06/2018 Assessment & Plan (04/10/2019 9:55 AM COMPUTER AIDED DESIGN DESIGNER): Check labs Encounters Date Type Department Care Team Description 03/03/[address] [address] Constance Arboleda PA High bp during colonosocpy -- 03/03/2024 Orders Only [address] [place] [phone] Provider, MD Priscilla from Last 3 Months Immunizations Name Administration Dates Next Due Influenza, Unspecified 04/12/2023(Deferr ed: Patient Refused),05/13/2022(Deferred: Patient Refused),04/12/2022(Deferred: Patient Refused),01/19/2022(Deferred: Patient Refused),06/16/2021(Deferred: Patient Refused),05/13/2021(Deferred: Patient Refused),06/11/2019(Deferred: Patient Refused),04/10/2019(Deferred: Patient Refused),01/10/2018(Deferred: Patient Refused) Tdap 12/06/2018 Surgical History Surgery Date Site/Laterality Comments FOOT SURGERY L foot surgery FOOT AMPUTATION THROUGH METATARSAL Left neuropsychology service director accident cut off 2-5 toes ANAL FISSURECTOMY [...] on file Legal Sex Male 2:03 AM COMPUTER AIDED DESIGN DESIGNER Gender Identity Male 04/22/2021 9:30 AM COMPUTER AIDED DESIGN DESIGNER Sexual Orientation Straight 04/22/2020 7: 55 AM COMPUTER AIDED DESIGN DESIGNER 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 file Not on file Not on file Obstetrics History Last Filed Vital Signs Vital Sign Reading Time Taken Comments Blood Pressure 158/100 07/26/2023 10:37 AM CDT took BP in both arms same reading 158/100 Pulse 80 07/26/2023 10:37 AM CDT Temperature 36.7 C (98.1 F) 07/26/2023 10:37 AM CDT Respiratory Rate 15 03/19/2023 9:08 AM COMPUTER AIDED DESIGN DESIGNER Oxygen Saturation 97% 07/26/2023 10: 37 AM [...] Comments HM COLONOSCOPY Routine 03/03/2024 1:35 PM COMPUTER AIDED DESIGN DESIGNER COMPREHENSIVE METABOLIC PANEL Routine 10/07/2023 9:04 AM [...] Results * (ABNORMAL) COLONOSCOPY (03/03/2024 1:35 PM COMPUTER AIDED DESIGN DESIGNER) Scribed Colonoscopy Abnormal Historical Provider HEALTH MAINTENANCE [...] 5:23 PM CDT FASTING:YES FASTING: YES Constance MATHISA LAB BLOOD ORDERABLES Final Result [facility] [address] [address] * (ABNORMAL) Albumin Creatinine Ratio, Urine (10/07/2023 [...] AM CDT 10/07/2023 9:07 AM CDT [facility] - 10/08/2023 5:23 PM CDT FASTING:YES FASTING: YES Constanec MATHIAS LAB URINE ORDERABLES Final Result [facility] [address] [place] [address] * (ABNORMAL) Hemoglobin A1c (10/07/2023 9:04 AM [...] change in test platforms from the [employer] Associate to the Elida kelley c503 may have shifted HbA1c results compared to historical results. Based on laboratory validation testing conducted at [facility], the Elida platform relative to the [employer] [...] AM CDT 10/07/2023 9:07 AM CDT Narrative [facility] - 10/08/2023 5:23 PM CDT FASTING:YES FASTING: YES us Constance MATHIAS LAB BLOOD ORDERABLES Final Result [facility] [address] [place] [address] * (ABNORMAL) Lipid panel (10/07/2023 9:04 AM CDT) [facility] Cholesterol 154 <200 mg/dL [facility] HDL 28(L) > OR = 40 mg/dL [facility] Triglycerides 342(H) <150 mg/dL [facility] Comment: If a non-fasting specimen was collected, consider repeat triglyceride testing on a fasting specimen if clinically indicated. Eduardo et al. J. of Clin. Lipidol. 2015;9:129-169. LDL 85 mg/dL (calc) [facility] Comment: Reference range: <100 Desirable range <100 mg/dL for primary prevention; <70 mg/dL for patients with CHD or diabetic patients with > or = 2 CHD risk factors. LDL-C is now calculated using the Tristan-Chani calculation, which is a validated novel method providing better accuracy than the Friedewald equation in the estimation of LDL-C. Tristan SS et al. VAIBHAV. 2013;310(19): 9657-0978 (http://education.Fifteen Reasons/faq/WVT954) Chol/HDL ratio 5.5(H) <5.0 (calc) [facility] Non-HDL, (LDL+VLDL) 126 <130 mg/dL (calc) [...] MATHIAS LAB BLOOD ORDERABLES Final Result [facility] [address] [address] [facility] [place] [address] * (ABNORMAL) Comprehensive metabolic panel (10/07/2023 9:04 AM CDT) Pathologist [facility] Glucose 186(H) 65 - 99 mg/dL [facility] [...] LAB BLOOD ORDERABLES Final Result [facility] [address] [place] [address] * DIABETES EYE EXAM (08/01/2022 11:51 AM CDT) Historical Provider HEALTH MAINTENANCE Edited Result - Final from Last 3 Months or Most Recently Relevant to Health Maintenance Insurance [employer] OOS Member Subscriber Plan / Payer (Ef fective 2021-Present) Name:Tim Mishra Relation to Subscriber:Self Name:Tim Mishra Payer ID:[id number] (NAIC) Type: [employer] Address: [facility] [address] [id number] BLUE ACCESS OOS Advance Directives For more information, please contact: [phone] * Full Code (Latest Code Status on File) Date Activated Date Inactivated Comments 03/14/2023 9:15 AM 03/16/2023 3:09 PM * Full Code Date Activated Date Inactivated Comments 08/30/2017 4:21 PM 08/31/2017 4:10 PM Care Teams Game Trapper Relationship Specialty Start Date End Date Constance Arboleda PA [address] [facility] [address] [place] [address] PCP - General Internal Medicine 11/17/18 [place] [address] [place] [address] Consulting Physician Cardiology 08/31/17
== END 2024-05-23 21:35 | disposition left against medical advice (07) ==
PROVIDERS: Emergency Provider Physician Assistant; PCP Physician Assistant
DX: R10.9 Unspecified abdominal pain (principal)
CPT/HCPCS: 99199